=== PATIENT | male | born 1965 | race Caucasian/White ===

== ENCOUNTER 2021-10-17 08:15 | Emergency (ER) | payer BC, SELFPAY ==
--- NOTE | ~2021-10-17 | XR_ITS ---
EXAMINATION: XR chest 2V DATE: 10/17/2021 08:37 INDICATION: Cough. Smoker. TECHNIQUE: Frontal and lateral views of the chest were obtained. COMPARISON: None. FINDINGS: The chest demonstrates clear lungs without pneumonia, pleural effusion, or pneumothorax. Th e heart size is normal. IMPRESSION: 1. No acute cardiopulmonary disease. Reviewed, dictated and finalized at location A.
[2021-10-17 08:22] VITALS: BP 135/82; PULSE 65; RESP 16; TEMP 36.9; O2SAT 98
--- NOTE | 2021-10-17 08:27 | ED.URI ---
HPI - URI/Sore Throat General Chief Complaint: Upper Respiratory Infection Stated Complaint: Chest Congestion Time Seen by Provider: 10/17/21 08:27 Source: patient Mode of arrival: ambulatory Limitations: no limitations History of Present Illness HPI Narrative: 55 yo M presents with cough, chest congestion Since October 08. Pt states he tested positive for covid october 10. No recent fever or SOB. No CP. Is concerned he may have covid due to continued cough. Pt does smoke daily. Ambulatory with steady gait. Taking OTC mucinex. All systems reviewed and negative except as noted above. Related Data Home Medications Medication Instructions Recorded Confirmed aspirin 81 mg tablet,delayed 81 mg PO DAILY 10/17/21 10/17/21 release (Adult Low Dose Aspirin) atorvastatin 80 mg tablet 1 tablet PO DAILY 10/17/21 10/17/21 clopidogrel 75 mg tablet 1 tablet PO DAILY 10/17/21 10/17/21 evolocumab 140 mg/mL subcutaneous 1 syr subcut [id number] 10/17/21 10/17/21 syringe (Repatha Syringe) ezetimibe 10 mg tablet 1 tablet PO DAILY 10/17/21 10/17/21 lisinopril 2.5 mg tablet 1 tablet PO DAILY 10/17/21 10/17/21 Allergies Allergy/AdvReac Type Severity Reaction Status Date / Time No Known Allergies Allergy Verified 10/17/21 08:35 Review of Systems Review of Systems: CONSTITUTIONAL: Denies fever, chills, or sweats. EYES: Denies visual changes, redness, or discharge. ENT: Denies rhinorrhea, congestion, sore throat, or otalgia. CARDIOVASCULAR: Denies chest pain, palpitations, or edema. RESPIRATORY: Reports cough. Denies dyspnea. GASTROINTESTINAL: Denies abdominal pain, nausea, vomiting, or diarrhea. GENITOURINARY: Denies dysuria or hematuria. SKIN: Denies rash or itching. MUSCULOSKELETAL: Denies back pain, joint pain, or myalgia. NEUROLOGIC: Denies headache, numbness, or weakness. PSYCHIATRIC: Denies anxiety or depression. All other systems reviewed are negative, except as documented in HPI. PMFSH Comments At time of signature, agree with nursing past medical, surgical, social and family history. There is no relevant family history pertinent to the presenting complaint. Exam Narrative: GENERAL: This is a well-nourished, well-developed patient, in no apparent distress. HEAD: normocephalic, atraumatic. EYES: PERRL. Sclera clear/white. Vision is grossly intact. EARS: External ears normal, auditory canals clear and without drainage, TMs normal without perforation. Hearing grossly intact. NOSE: External nose normal with no obvious nasal discharge, nares without redness, no rhinorrhea. THROAT: Mucous membranes moist, posterior pharynx clear. NECK: Neck supple, non-tender without lymphadenopathy, masses or thyromegaly. CARDIOVASCULAR: Regular rate and rhythm without murmurs, gallops, or rubs. RESPIRATORY: Mildly decreased lung sounds throughout all lung marie. Breath sounds equal bilaterally. No wheezes, rales, or rhonchi. SKIN: warm, Dry, intact with no suspicious lesions or rash, good texture and turgor. NEURO: awake, alert, and oriented to person, place and time. There were no obvious focal neurologic abnormalities. EXTREMITIES: No joint tenderness, effusion, or edema noted. Course Course Level of Care: Express Care Visit Vital Signs Vital signs: Vital Signs Temperature 36.9 C 10/17/21 08:22 Pulse Rate 65 10/17/21 08:22 Respiratory Rate 16 10/17/21 08:22 Blood Pressure 135/82 10/17/21 08:22 Pulse Oximetry 98 10/17/21 08:22 Oxygen Delivery Room Air 10/17/21 08:22 Temperature 36.9 C 10/17/21 08:22 Pulse Rate 65 10/17/21 08:22 Respiratory Rate 16 10/17/21 08:22 Blood Pressure 135/82 10/17/21 08:22 Pulse Oximetry 98 10/17/21 08:22 Oxygen Delivery Room Air 10/17/21 08:22 Reviewed MDM - URI/Sore Throat MDM Narrative Medical decision making narrative: At time of signature, agree with nursing past medical, surgical, social and family history. There is no relevant family history pertinent to th
== END 2021-10-17 08:55 | disposition home or self-care (01) ==
PROVIDERS: Emergency Provider Nurse Practitioner Family; PCP Family Medicine
DX: J20.9 Acute bronchitis, unspecified (principal); I25.2 Old myocardial infarction
CPT/HCPCS: 71046; 99213; G0463

== ENCOUNTER 2023-07-21 12:00 | Emergency (ER) | payer BC, SELFPAY ==
[2023-07-21 12:06] VITALS: BP 146/78; PULSE 58; RESP 20; TEMP 37; O2SAT 96
--- NOTE | 2023-07-21 12:21 | ED.URI ---
HPI - URI/Sore Throat General Chief Complaint: Upper Respiratory Infection Stated Complaint: cold symptoms Time Seen by Provider: 07/21/23 12:17 Source: patient and RN notes reviewed Mode of arrival: ambulatory Limitations: no limitations History of Present Illness HPI Narrative: Patient presents today with a 10 day history of congestion, postnasal drip, headache, cough that is worse at night, occasional shortness of breath and wheezing. Symptoms have been worse over the last 4 days. Denies fever. He has tried Robitussin and Tylenol without relief. Denies asthma or COPD. Smokes 1 pack per day. Related Data Home Medications Medication Instructions Recorded Confirmed aspirin 81 mg tablet,delayed 81 mg PO DAILY 10/17/21 07/21/23 release (Adult Low Dose Aspirin) atorvastatin 80 mg tablet 1 tablet PO DAILY 10/17/21 07/21/23 clopidogrel 75 mg tablet 1 tablet PO DAILY 10/17/21 07/21/23 evolocumab 140 mg/mL subcutaneous 1 syr subcut [id number] 10/17/21 07/21/23 syringe (Repatha Syringe) lisinopril 2.5 mg tablet 1 tablet PO DAILY 10/17/21 07/21/23 Allergies Allergy/AdvReac Type Severity Reaction Status Date / Time No Known Allergies Allergy Verified 10/17/21 08:35 Review of Systems Review of Systems: CONSTITUTIONAL: Denies body aches, fever, chills, or sweats. EYES: Denies visual changes, redness, or discharge. ENT: Denies rhinorrhea, sore throat, or otalgia.+ congestion, postnasal drip CARDIOVASCULAR: Denies chest pain, palpitations, or edema. RESPIRATORY: + cough, shortness of breath, wheezing GASTROINTESTINAL: Denies abdominal pain, nausea, vomiting, or diarrhea. GENITOURINARY: Denies dysuria or hematuria. SKIN: Denies rash, itching, or wounds. MUSCULOSKELETAL: Denies back pain, joint pain, or myalgia. NEUROLOGIC: Denies numbness, tingling, or weakness.+ headache PSYCH: Denies depression or anxiety. [facility] Past Medical History Medical History (Updated 07/21/23 @ 12:36 by Keiko Figueroa, [employer], [place]) High cholesterol Social History Social History (Updated 07/21/23 @ 12:37 by Keiko Figueroa, [employer] M[employer], BC) Smoking packs per day: 1 Smoking cigarettes per day: 20.0 Smoking status: Current every day smoker Tobacco type: cigarettes Comments At time of signature, I have reviewed and agree with nursing past medical, surgical, social and family history unless otherwise noted. Please see nursing chart for further information. There is no relevant family history pertinent to the presenting complaint Exam Narrative: GENERAL: Well-appearing, well-nourished, and in no acute distress. HEAD: Normocephalic, atraumatic. EYES: EOMI. No redness or drainage. Conjunctivae normal. ENT: Mucous membranes pink and moist. Nares congested. No rhinorrhea. TMs normal bilaterally. Throat normal. Uvula midline. NECK: Normal AROM. Supple. No lymphadenopathy. CHEST: No respiratory distress. Clear to auscultation. HEART: Regular rate and rhythm. No murmur appreciated. EXTREMITIES: Normal range of motion. No edema. SKIN: Warm, dry, no rash. Capillary refill normal. Normal skin turgor. NEURO: No focal deficits. Alert and oriented x3. Gait steady. PSYCH: Normal affect. No signs of depression or anxiety. Course Course Level of Care: Express Care Visit Vital Signs Vital signs: Vital Signs Temperature 98.6 F 07/21/23 12:06 Pulse Rate 58 L 07/21/23 12:06 Respiratory Rate 20 07/21/23 12:06 Blood Pressure 146/78 H 07/21/23 12:06 Pulse Oximetry 96 07/21/23 12:06 Oxygen Delivery Room Air 07/21/23 12:06 Temperature 98.6 F 07/21/23 12:06 Pulse Rate 58 L 07/21/23 12:06 Respiratory Rate 20 07/21/23 12:06 Blood Pressure 146/78 H 07/21/23 12:06 Pulse Oximetry 96 07/21/23 12:06 Oxygen Delivery Room Air 07/21/23 12:06 Reviewed MDM - URI/Sore Throat MDM Narrative Medical decision making narrative: Patient will be treated for sinusitis and bronchitis with Augmentin and
== END 2023-07-21 12:25 | disposition home or self-care (01) ==
PROVIDERS: Emergency Provider Nurse Practitioner; PCP Family Medicine
DX: J32.9 Chronic sinusitis, unspecified (principal); J40 Bronchitis, not specified as acute or chronic; F17.210 Nicotine dependence, cigarettes, uncomplicated; E78.00 Pure hypercholesterolemia, unspecified; Z79.82 Long term (current) use of aspirin
CPT/HCPCS: 99213; G0463

== ENCOUNTER 2024-08-16 15:41 | Emergency (ER) | payer OTHER, SELFPAY ==
--- OUTSIDE RECORDS SUMMARY | 2024-08-16 15:43 | XMS_ITS | CONTINUITY OF CARE DOCUMENT ---
Author Name nathandeb, nathandeb Address Unknown Organization [facility] Address [address] [facility] [address] [place] [address] Phone [phone] Care Team Providers Care Last Code Striper Name Role Phone Brennen PICKETT, Boris Unavailable [phone] CHEIKH JEFFREY MD Unavailable [phone] CHEIKH JEFFREY MD Unavailable [phone] PROBLEMS Condition Status Date Provider Notes CHEST PAIN completed - Boris Hutton MD CAD INF WALL [place] VISION STENT TO RCA , PDA 2012 , nl stress nuclear 12/2016 active Boris Hutton MD FAMILY HISTORY OF HEART DISEASE-10/17 CAROTID NEG completed - Boris Hutton MD TOBACCO ABUSE active Boris Hutton MD HTN SYSTOLIC echo 09/2019 ef 60% active Sal Hutton MD Hypercholesterolemia, LDL 12 7 in 11/2017 completed - Boris Hutton MD Obesity active Boris Hutton MD Near Syncope active Boris Hutton MD Elevated blood glucose completed 4 - Boris Hutton MD Hypertriglyceridemia completed - Boris Hutton MD Hyperlipidemia active Boris Hutton MD FAMILY HISTORY OF premature HEART DISEASE active Boris Hutton MD Exposure to COVID-19 coronav irus , bronchitis 10/26 active Boris Hutton MD Numbness, left side of body active Desmond blake Sleep apnea, moderate, refused cpap active Desmond Lionosiel Leg pain, bilateral--LARISA mil d disease 10/2023 active Desmond Marsh ENCOUNTERS Date Type Provider Location Encounter Diag nosis - In-person encounter Office Visit Boris Hutton MD [facility] - In-person encounter Office Visit Boris Hutton MD [facility] Sleep apnea, moderate, refused cpapLeg pain, bilateral--LARISA mild disease 10/2023 - In-person encounter Office Visit Boris Hutton MD [facility] Numbness, left side of bodySleep apnea, moderate, refused cpapLeg pain, bilateral--LARISA mild disease 10/2023 - In-person encounter Office Visit Boris Hutton MD [facility] Exposure to COVID-19 coronavirus , bronchitis 10/26 - In-person encounter Office Visit Boris Hutton MD [facility] - In-person encounter Office Visit Boris Hutton MD [facility] CAD INF WALL [place] VISION STENT TO RCA , PD A 2012 , nl stress nuclear 12/2016FAMILY HISTORY OF HEART DISEASE-10/17 CAROTID NEGHTN SYSTOLIC echo 09/2019 ef 60%Hypercholesterolemia, LDL 127 in 11/2017Elevated blood glucoseHypertriglyceridemiaHyperlipidemiaFA [facility] HISTORY OF premature HEART DISEASE - In-person encounter Office Visit Boris Hutton MD [facility] Near Syncope - In-person encounter Office Visit Boris Hutton MD [facility] - In-person encounter Office Visit Boris Hutton MD [facility] Obesity - In-person encounter Office Visit Boris Hutton MD [facility] - In-person encounter Office Visit Boris Hutton MD [facility] - In-person encounter Office Visit Boris Hutton MD [facility] CHEST PAINCAD INF WALL [place] VISION STENT T O RCA , PDA 2012 , nl stress nuclear 12/2016HTN SYSTOLIC echo 09/2019 ef 60% - In-person encounter Office Visit Boris Hutton MD [facility] - In-person encounter Office Visit Boris Hutton MD [facility] - In-person encounter Office Visit Boris Hutton MD [facility] - In-person encounter Office Visit Boris Hutton MD [facility] HTN SYSTOLIC echo 09/2019 ef 60% - In-person encounter Office Visit Boris Hutton MD [facility] CAD INF WALL [place] VISION STENT TO RCA , PD A 2012 , nl stress nuclear 12/2016FAMILY HISTORY OF HEART DISEASE-10/17 CAROTID NEGTOBACCO ABUSEHTN SYSTOLIC echo 09/2019 ef 60%Hypercholesterolemia, LDL 127 in 11/2017 VITAL SIGNS Date Observation Value Provider Body Mass Index (Ratio) 35.42 kg/m2 Sal Hutton MD blood pressure, diastolic 85 mm[Hg] Maria Guadalupe Piper blood pressure, systolic 136 mm[Hg] Ana Piper oxygen saturation, oximetry 97 % Susan Piper pulse rate 56 /min Susan Piper respiratory rate E&M 12 /min Susan Piper weight E&M 254 [lb_av] Susan Piper height E&M 71 [in_i] Susan Piper blood pressure, cuff size regular Maria Guadalupe Piper blood pressure, diastolic 89 mm[Hg] Va sarah Huerta blood pressure, systolic 143 mm[Hg] Danielle jennifer Huerta pulse rate 60 /min Gabriella Bradley respiratory rate E&M 16 /min Gabriella Bradley oxygen saturation, oximetry 94 % Gabriella Bradley blood pressure, cuff size regular Va lerstephany Bradley height E&M 71 [in_i] Gabriella Bradley Body Mass Index (Ratio) 36.12 kg/m2 Sal Hutton MD blood pressure, diastolic -1 mm[Hg] Li nkLogic blood pressure, systolic 145 mm[Hg] Krys kLogic blood pressure, diastolic 85 mm[Hg] Ja rret blood pressure, systolic 145 mm[Hg] Jar ret pulse rate 59 /min Jean y blood pressure, cuff size regular Ja rret oxygen saturation, oximetry 96 % Jean respiratory rate E&M 14 /min Jean weight E&M 259 [lb_av] Jean y height E&M 71 [in_i] Jean y Body Mass Index (Ratio) 34.86 kg/m2 Sal Hutton MD blood pressure, cuff size large Pr alex [place] blood pressure, diastolic 84 mm[Hg] Mi alex [place] blood pressure, systolic 146 mm[Hg] [facility] helle [place] oxygen saturation, oximetry 96 % Lorna Mireles respiratory rate E&M 16 /min Delmis tai Mireles pulse rate 63 /min Lorna schwartz weight E&M 250 [lb_av] Lorna Buckner d height E&M 71 [in_i] Lorna Buckner d Body Mass Index (Ratio) 35.28 kg/m2 Sal Hutton MD blood pressure, diastolic 92 mm[Hg] Mirna [place] blood pressure, systolic 144 mm[Hg] Cat herine [place] oxygen saturation, oximetry 98 % Peace [place] respiratory rate E&M 14 /min Catheri ne Demond pulse rate 68 /min Peace [place] weight E&M 253 [lb_av] Peace Demond blood pressure, cuff size large Ca therine [place] height E&M 71 [in_i] Peace [place] Body Mass Index (Ratio) 34.59 kg/m2 Sal Hutton MD blood pressure, diastolic 85 mm[Hg] Li nkLogic blood pressure, systolic 156 mm[Hg] Krys kLogic blood pressure, diastolic 85 mm[Hg] Ch astity Usman blood pressure, systolic 156 mm[Hg] Flaca stity Usman oxygen saturation, oximetry 96 % Chastity Usman pulse rate 64 /min Chastity Usman respiratory rate E&M 16 /min Chastit y Usman weight E&M 248 [lb_av] Chastity Usman height E&M 71 [in_i] Chastity Usman Body Mass Index (Ratio) 35.70 kg/m2 Sal Hutton MD blood pressure, cuff size large Ke rri Gruenenfelder blood pressure, diastolic 94 mm[Hg] Ke rri Gruenenfelder blood pressure, systolic 140 mm[Hg] Kwaku Mckinley oxygen saturation, oximetry 98 % Alice Arlen respiratory rate E&M 16 /min Alice hendrickson pulse rate 67 /min Alice Ana ldalfredo weight E&M 256 [lb_av] Alicejessica Perez lder height E&M 71 [in_i] Alice Perez lder Body Mass Index (Ratio) 35.51 kg/m2 Sal Hutton MD blood pressure, diastolic 84 mm[Hg] Luther Lopez [place] blood pressure, systolic 135 mm[Hg] Lena Junior oxygen saturation, oximetry 97 % Nikunj Junior respiratory rate E&M 18 /min Kelby alvares Junior pulse rate 60 /min Nikunj Tim nson weight E&M 254.6 [lb_av] Nikunj Linn enson height E&M 71 [in_i] Nikunj Tim nson temperature site temporal Linda Tank sley temperature E&M 97.7 [degF] Linda Tanks rosendo Body Mass Index (Ratio) 35.14 kg/m2 Sal Hutton MD blood pressure, diastolic 80 mm[Hg] Da august Jameson blood pressure, systolic 132 mm[Hg] Dac ia Jameson oxygen saturation, oximetry 94 % Tierra Jameson respiratory rate E&M 18 /min Tierra V oss pulse rate 67 /min Tierra Jameson weight E&M 252 [lb_av] Tierra Jameson height E&M 71 [in_i] Tierra Jameson Body Mass Index (Ratio) 35.42 kg/m2 Sal Hutton MD blood pressure, cuff size large Ke rri Arlen blood pressure, diastolic 80 mm[Hg] Ke rri Arlen blood pressure, systolic 142 mm[Hg] Kwaku Mckinley oxygen saturation, oximetry 98 % Alice Mckinley respiratory rate E&M 20 /min Alice hendrickson pulse rate 62 /min Alice Betoe lder weight E&M 254 [lb_av] Alice Betoe lder height E&M 71 [in_i] Alice Betoe er Body Mass Index (Ratio) 34.45 kg/m2 Andr ia Curly blood pressure, cuff size large Ke rri Betoelder blood pressure, diastolic 80 mm[Hg] Ke rri Betoelder blood pressure, systolic 130 mm[Hg] Kwaku ri [facility] oxygen saturation, oximetry 96 % Alice Pérezmaximilianoer respiratory rate E&M 16 /min Alice Walls [facility] pulse rate 66 /min Alice Péreze er weight E&M 247 [lb_av] Alice Péreze er height E&M 71 [in_i] Alice Péreze er blood pressure, diastolic 80 mm[Hg] Luther Junior blood pressure, systolic 136 mm[Hg] Lena Junior pulse rate 69 /min Nikunj knox oxygen saturation, oximetry 97 % Nikunj Junior respiratory rate E&M 16 /min Kelby Junior Body Mass Index (Ratio) 34.70 kg/m2 Christina Junior weight E&M 248.8 [lb_av] Nikunj saunders blood pressure, diastolic 85 mm[Hg] Luther Junior blood pressure, systolic 134 mm[Hg] Lena Junior pulse rate 60 /min Nikunj knox oxygen saturation, oximetry 97 % Nikunj Junior respiratory rate E&M 16 /min Kelby Junior Body Mass Index (Ratio) 34.92 kg/m2 Christina Junior weight E&M 250.4 [lb_av] Nikunj saunders blood pressure, diastolic 85 mm[Hg] Luther Junior blood pressure, systolic 137 mm[Hg] Lena Junior Body Mass Index (Ratio) 34.50 kg/m2 Christina Junior pulse rate 54 /min Nikunj knox oxygen saturation, oximetry 98 % Nikunj Junior respiratory rate E&M 18 /min Kelby Junior weight E&M 247.4 [lb_av] Nikunj sanuders Body Mass Index (Ratio) 34.03 kg/m2 Concepcion Mayorga blood pressure, diastolic 81 mm[Hg] Yuriy Mayorga blood pressure, systolic 128 mm[Hg] Cruz elif Mayorga pulse rate 68 /min Lina Mayorga oxygen saturation, oximetry 97 % Lina Mayorga respiratory rate E&M 17 /min Lina Mayorga weight E&M 244 [lb_av] Lina Mayorga blood pressure, diastolic 91 mm[Hg] Jeffrey Cerda RN blood pressure, systolic 151 mm[Hg] Alex Cerda RN pulse rate 66 /min Alex Cerda RN oxygen saturation, oximetry 97 % Alex Cerda RN respiratory rate E&M 18 /min Alex ahmadi RN Body Mass Index (Ratio) 35.83 kg/m2 Alex Cerda RN weight E&M 256 [lb_av] Alex Cerda RN Body Mass Index (Ratio) 28.00 kg/m2 Calos Barrera blood pressure, diastolic, left arm 71 mm [Hg] Debora Barrera blood pressure, systolic, left arm 127 mm [Hg] Debora Barrera blood pressure, diastolic, right arm 81 m m[Hg] Debora Barrera blood pressure, systolic, right arm 125 m m[Hg] [facility] blood pressure, diastolic 71 mm[Hg] Walter jerrell [place] blood pressure, systolic 127 mm[Hg] Robin eagle [place] pulse rate 58 /min [facility] oxygen saturation, oximetry 97 % [facility] respiratory rate E&M 16 /min [facility] weight E&M 200 [lb_av] [facility] height E&M 71 [in_i] [facility] ALLERGIES No Known Drug Allergies RESULTS Date Observation Value Provider Reference Range Interpretation Location hemoglobin A1C, blood, as % of total hemoglobin 5.6 % [facility] 4.8-5.6 lipoprotein, beta, serum, point, quantitative, calculated 145 mg/dL [facility] 0-99 High HDL cholesterol, serum 36 mg/dL [facility] >39 Low triglyceride, serum, random 131 mg/dL [facility] 0-149 cholesterol, serum 205 mg/dL [facility] 100-199 High alanine aminotransferase (SGPT), serum 34 1/L [facility] 0-44 aspartate aminotransferase (SGOT), serum 25 1/L [facility] 0-40 alkaline phosphatase, serum 76 1/L [facility] 39-117 bilirubin, serum, total 0.9 mg/dL [facility] 0.0-1.2 albumin/globulin ratio, serum 1.9 [facility] 1.2-2.2 globulin, serum 2.3 [facility] 1.5-4.5 albumin, serum 4.4 g/dL [facility] 3.8-4.9 protein, total, serum 6.7 g/dL [facility] 6.0-8.5 calcium, serum 9.6 mg/dL [facility] 8.7-10.2 carbon dioxide, venous blood 21 mmol/L [facility] 20-29 chloride, serum 104 mmol/L [facility] 96-106 potassium, serum 4.6 mmol/L [facility] 3.5-5.2 sodium, serum 139 mmol/L [facility] 043-374 8447/01/ 14 urea nitrogen/creatinine ratio, serum 24 [facility] 9-20 High eGFR if 91 mL/min/{1. 73_m2} [facility] >59 eGFR if not 79 mL/min/{1. 73_m2} [facility] >59 creatinine, serum 1.05 mg/dL [facility] 0.76-1.27 urea nitrogen, blood 25 mg/dL [facility] 6-24 High blood glucose, random 97 mg/dL [facility] 65-99 free thyroxine index 1.8 [facility] 1.2-4.9 triiodothyronine resin uptake 25 % [facility] 24-39 thyroxine, serum, total 7.3 ug/dL [facility] 4.5-12.0 thyroid stimulating hormone, serum 1.810 u[IU]/mL [facility] 0.450-4.500 hemoglobin A1C, blood, as % of total hemoglobin 5.6 % [facility] 4.8-5.6 lipoprotein, beta, serum, point, quantitative, calculated See report mg/dL [facility] 0-99 very low density lipoproteins See report mg/dL [facility] 5-40 HDL cholesterol, serum 33 mg/dL [facility] >39 Low triglyceride, serum, random 615 mg/dL [facility] 0-149 Critical high cholesterol, serum 223 mg/dL [facility] 100-199 High platelet count 214 X10E3/UL [facility] [phone]/06/ 18 red blood cell distribution width 12.9 % [facility] 11.6-15.4 mean corpuscular hemoglobin concentration, RBC 34.4 G/DL [facility] 31.5-35.7 mean corpuscular hemoglobin, RBC 31.7 pg [facility] 26.6-33.0 mean corpuscular volume, RBC 92 fL [facility] 79-97 hematocrit, blood 46.2 % [facility] 37.5-51.0 hemoglobin, blood 15.9 g/dL [facility] 13.0-17.7 erythrocyte (RBC) count 5.02 X10E6/UL [facility] 4.14-5.80 leukocyte count, blood 6.7 X10E3/UL [facility] 3.4-10.8 alanine aminotransferase (SGPT), serum 24 1/L [facility] 0-44 aspartate aminotransferase (SGOT), serum 19 1/L [facility] 0-40 alkaline phosphatase, serum 78 1/L [facility] 39-117 bilirubin, serum, total 0.5 mg/dL [facility] 0.0-1.2 albumin/globulin ratio, serum 2.2 [facility] 1.2-2.2 globulin, serum 2.1 [facility] 1.5-4.5 albumin, serum 4.6 g/dL [facility] 3.8-4.9 protein, total, serum 6.7 g/dL [facility] 6.0-8.5 calcium, serum 9.7 mg/dL [facility] 8.7-10.2 carbon dioxide, venous blood 25 mmol/L [facility] 20-29 chloride, serum 106 mmol/L [facility] 96-106 potassium, serum 5.3 mmol/L [facility] 3.5-5.2 High sodium, serum 143 mmol/L [facility] 337-309 9986/06/ 18 urea nitrogen/creatinine ratio, serum 21 [facility] 9-20 High eGFR if 91 mL/min/{1. 73_m2} [facility] >59 eGFR if not 79 mL/min/{1. 73_m2} [facility] >59 creatinine, serum 1.06 mg/dL [facility] 0.76-1.27 urea nitrogen, blood 22 mg/dL [facility] 6-24 blood glucose, random 98 mg/dL [facility] 65-99 hemoglobin A1C, blood, as % of total hemoglobin 5.7 % [facility] 4.8-5.6 High free thyroxine index 2.4 [facility] 1.2-4.9 triiodothyronine resin uptake 30 % [facility] 24-39 thyroxine, serum, total 8.1 ug/dL [facility] 4.5-12.0 thyroid stimulating hormone, serum 2.250 u[IU]/mL [facility] 0.450-4.500 lipoprotein, beta, serum, point, quantitative, calculated See report mg/dL [facility] 0-99 very low density lipoproteins See report mg/dL [facility] 5-40 HDL cholesterol, serum 32 mg/dL [facility] >39 Low triglyceride, serum, random 655 mg/dL [facility] 0-149 Critical high cholesterol, serum 237 mg/dL [facility] 100-199 High basophil count, absolute 0.1 x10E3/uL [facility] 0.0-0.2 Eosinophil Absolute Count 0.2 X10E3/UL [facility] 0.0-0.4 monocyte count, blood, automated 0.6 X10E3/UL [facility] 0.1-0.9 lymphocyte count, blood, automated 2.4 X10E3/UL [facility] 0.7-3.1 Absolute Neutrophils 4.3 X10E3/UL [facility] 1.4-7.0 basophils as percent of blood leukocytes 1 % [facility] Not Estab. eosinophils as percent of blood leukocytes 3 % [facility] Not Estab. monocytes as percent of blood leukocytes 8 % [facility] Not Estab. lymphocytes as percent of blood leukocytes 32 % [facility] Not Estab. neutrophils as percent of blood leukocytes 56 % [facility] Not Estab. platelet count 201 X10E3/UL [facility] [phone]/02/ 06 red blood cell distribution width 13.4 % [facility] 12.3-15.4 mean corpuscular hemoglobin concentration, RBC 33.9 G/DL [facility] 31.5-35.7 mean corpuscular hemoglobin, RBC 30.3 pg [facility] 26.6-33.0 mean corpuscular volume, RBC 89 fL [facility] 79-97 hematocrit, blood 44.8 % [facility] 37.5-51.0 hemoglobin, blood 15.2 g/dL [facility] 13.0-17.7 erythrocyte (RBC) count 5.02 X10E6/UL [facility] 4.14-5.80 leukocyte count, blood 7.5 X10E3/UL [facility] 3.4-10.8 alanine aminotransferase (SGPT), serum 29 1/L [facility] 0-44 aspartate aminotransferase (SGOT), serum 17 1/L [facility] 0-40 alkaline phosphatase, serum 72 1/L [facility] 39-117 bilirubin, serum, total 0.3 mg/dL [facility] 0.0-1.2 albumin/globulin ratio, serum 2.2 [facility] 1.2-2.2 globulin, serum 2.1 [facility] 1.5-4.5 albumin, serum 4.6 g/dL [facility] 3.5-5.5 protein, total, serum 6.7 g/dL [facility] 6.0-8.5 calcium, serum 9.0 mg/dL [facility] 8.7-10.2 carbon dioxide, venous blood 22 mmol/L [facility] 20-29 chloride, serum 108 mmol/L [facility] 96-106 High potassium, serum 4.4 mmol/L [facility] 3.5-5.2 sodium, serum 145 mmol/L [facility] 134-144 High urea nitrogen/creatinine ratio, serum 20 [facility] 9-20 eGFR if 85 mL/min/{1. 73_m2} [facility] >59 eGFR if not 73 mL/min/{1. 73_m2} [facility] >59 creatinine, serum 1.13 mg/dL [facility] 0.76-1.27 urea nitrogen, blood 23 mg/dL [facility] 6-24 blood glucose, random 113 mg/dL [facility] 65-99 High hemoglobin A1C, blood, as % of total hemoglobin 5.7 % [facility] 4.8-5.6 High free thyroxine index 2.0 [facility] 1.2-4.9 triiodothyronine resin uptake 25 % [facility] 24-39 thyroxine, serum, total 7.8 ug/dL [facility] 4.5-12.0 lipoprotein, beta, serum, point, quantitative, calculated 127 mg/dL [facility] 0-99 High very low density lipoproteins 53 mg/dL [facility] 5-40 High HDL cholesterol, serum 36 mg/dL [facility] >39 Low triglyceride, serum, random 267 mg/dL [facility] 0-149 High cholesterol, serum 216 mg/dL [facility] 100-199 High platelet count 195 X10E3/UL [facility] 667-136 9835/08/ 11 red blood cell distribution width 13.8 % [facility] 12.3-15.4 mean corpuscular hemoglobin concentration, RBC 33.7 G/DL [facility] 31.5-35.7 mean corpuscular hemoglobin, RBC 30.3 pg [facility] 26.6-33.0 mean corpuscular volume, RBC 90 fL [facility] 79-97 hematocrit, blood 46.6 % [facility] 37.5-51.0 hemoglobin, blood 15.7 g/dL [facility] 13.0-17.7 erythrocyte (RBC) count 5.18 X10E6/UL [facility] 4.14-5.80 leukocyte count, blood 7.6 X10E3/UL [facility] 3.4-10.8 alanine aminotransferase (SGPT), serum 28 1/L [facility] 0-44 aspartate aminotransferase (SGOT), serum 22 1/L [facility] 0-40 alkaline phosphatase, serum 69 1/L [facility] 39-117 bilirubin, serum, total 0.4 mg/dL [facility] 0.0-1.2 albumin/globulin ratio, serum 2.3 [facility] 1.2-2.2 High globulin, serum 2.0 [facility] 1.5-4.5 albumin, serum 4.6 g/dL [facility] 3.5-5.5 protein, total, serum 6.6 g/dL [facility] 6.0-8.5 calcium, serum 9.3 mg/dL [facility] 8.7-10.2 carbon dioxide, venous blood 20 mmol/L [facility] 20-29 chloride, serum 106 mmol/L [facility] 96-106 potassium, serum 4.1 mmol/L [facility] 3.5-5.2 sodium, serum 142 mmol/L [facility] 836-151 2659/08/ 11 urea nitrogen/creatinine ratio, serum 22 [facility] 9-20 High eGFR if 92 mL/min/{1. 73_m2} [facility] >59 eGFR if not 79 mL/min/{1. 73_m2} [facility] >59 creatinine, serum 1.06 mg/dL [facility] 0.76-1.27 urea nitrogen, blood 23 mg/dL [facility] 6-24 blood glucose, random 130 mg/dL [facility] 65-99 High HISTORY OF MEDICATION USE Medication Status Instructions Dates Provider Indications Com ments lisinopril 10 mg tablet active Take 1 tablet by mouth once a day Alice Mckinley clopidogrel 75 mg tablet active Take 1 tablet by mouth once a day Alice Mckinley Wegovy 0.5 mg/0.5 mL pen injector completed Inject 0.5 ml subcutaneously once a week Inject 0.5mg subcutaneously once a week for 4 weeks - 06/28 Desmond Marsh Wegovy 0.5 mg/0.5 mL pen injector completed Inject 0.25mg subcutaneously once a week for 4 weeks - Tehylor Flynney Wegovy 0.25 mg/0.5 mL pen injector completed Inject 0.25mg subcutaneously once a week for 4 weeks 11/09 - Desmond Marsh lisinopril 10 mg tablet completed TAKE 1 TABLET BY MOUTH ONCE DAILY 09/28 - Alice Mckinley Repatha SureClick 140 mg/mL pen injector active Inject 1 pen injector subcutaneously every two weeks Desmond Marsh CAD INF WALL [place] VISION STENT TO RCA , PDA 2012 , nl stress nuclear 12/2016 atorvastatin 80 mg tablet active TAKE 1 TABLET BY MOUTH AT NIGHT 04/26 Jean Easterday Repatha Syringe 140 mg/mL syringe completed Inject 1 ml subcutaneously every two weeks 11/26 - 05/14 Sheila Sigala atorvastatin 80 mg tablet completed TAKE 1 TABLET BY MOUTH AT NIGHT 04/26 - 04/26 Jean Easterday Repatha Syringe 140 mg/mL syringe completed INJECT 1 ML SUBCUTANEOUSLY 1 TIME EVERY 2 WEEKS 01/04 - 11/26 Alice Mckinley clopidogrel 75 mg tablet completed TAKE 1 TABLET BY MOUTH ONCE DAILY 12/25 - Alice Mckinley ezetimibe 10 mg tablet completed TAKE 1 TABLET BY MOUTH ONCE DAILY 12/08 - 11/09 Gabriella Huerta lisinopril 2.5 mg tablet completed TAKE 1 TABLET BY MOUTH ONCE DAILY 12/08 - 09/28 Desmond Busby Syringe 140 mg/mL syringe completed Inject 1 ml subcutaneously once every two weeks 12/21 - 01/04 Babita Orozco Zetia 10 mg tablet completed Take 1 tablet by mouth once a day 10/24 - 12/08 Alice Mckinley ezetimibe 10 mg tablet completed Take 1 tablet by mouth once a day 04/20 - 10/24 Stacie Quinonez RN Vascepa 1 gram capsule completed 2 capsule by mouth twice a day 04/10 - 10/24 Boris Cabralestilisa Continuing Month Box 1 mg tablet completed Take 1 mg by mouth twice a day 04/10 - 10/24 Boris Cabralestilisa Starting Month Box 0.5 mg (11)- 1 mg (42) tablets,dose pack completed Take 0.5mg daily on days 1-3, take 0.5mg twice daily on days 4-7, take 1mg twice daily on day 8 and to end of treatment 04/10 - 10/24 Boris HANNAH 1 GM ORAL CAPSULE completed 2 capsules by mouth twice daily [place] Coupon Code: KORTNEY# [id number], PCN# [id number], GRP# [id number], ID# [id number] 09/22 - 10/23 Alice CABRALESTIX CONTINUING MONTH EMIL 1 MG ORAL TABLET completed One pack. twice daily 10/28 - 10/23 Alice Kaurnfeldalfredo VASCEPA 1 GM ORAL CAPSULE completed take 2 capsules or 2 grams twice daily. 05/13 - 10/23 Nikunj Junior VASCEPA 1 GM ORAL CAPSULE completed 2 grams twice a day 05/13 - 10/23 Nikunj Junior Triglyceride level 667 CHANTIX CONTINUING MONTH EMIL 1 MG ORAL TABLET completed one tab daily 05/12 - 10/23 Alice Mckinley CHANTIX STARTING MONTH EMIL 0.5 MG X 11 & 1 MG X 42 ORAL TABLET completed one tab daily 05/12 - 10/23 Alice Mckinley MULTIVITAMINS ORAL CAPSULE completed ONE TAB. DAILY - 10/23 Alice Mckinley lisinopril 2.5 mg tablet completed Take 1 tablet by mouth once a day 09/19 - 12/08 Alice Mckinley atorvastatin 80 mg tablet completed Take 1 tablet by mouth every night 10/10 - 04/11 Alex Cerda RN clopidogrel 75 mg tablet completed Take 1 tablet by mouth once a day 06/05 - Alex Cerda RN aspirin 325 mg tablet active 1 tablet by mouth once a day Alex Cerda RN SOCIAL HISTORY Date Observation Value Provider drug use no Desmond makayla alcohol use, average drinks per day social Desmondliz Marsh alcohol use, type occa Desmond cartagena alcohol use yes Desmond makayla passive cigarette sm ryan exposure no Desmond makayla smoking/tobacco cess ation, patient education and counseling yes Desmond Marsh number of years as a smoker 20 a Desmondliz Marsh smoking history, tot al pack/day 1/2 ppd Desmond makayla cigarette use yes Desmondliz Marsh smoking status Current every day smoker R obi Marsh drug use no Desmond Marsh alcohol use, average drinks per day social Desmond Marsh alcohol use, type occa Desmond cartagena alcohol use yes Desmond Marsh passive cigarette sm ryan exposure no Desmond Marsh smoking/tobacco cess ation, patient education and counseling yes Desmond Marsh number of years as a smoker 20 a Desmond Marsh smoking history, tot al pack/day 1/2 ppd Desmond Marsh cigarette use yes Desmond Marsh smoking status Current every day smoker R meliz Marsh drug use no Desmond Marsh alcohol use, average drinks per day social Desmond Marsh alcohol use, type occa Desmond cartagena alcohol use yes Desmond Marsh passive cigarette sm ryan exposure no Desmond Marsh smoking/tobacco cess ation, patient education and counseling yes Desmond Marsh number of years as a smoker 20 a Desmond Marsh smoking history, tot al pack/day 1/2 ppd Desmond Marsh cigarette use yes Desmond Marsh smoking status Current every day smoker R obi Marsh social history E&M Marital Statu s: Smoking History: P atleno currently smokes every day. P atient has been counseled to quit. Boris Hutton MD social history reviewed E&M revi ewed - no changes required Boris Hutton MD exercise type work Lorna Esteban nd caffeine use, averag e drinks per day yes Lorna Mireles passive cigarette sm ryan exposure no Lorna Mireles smoking/tobacco cess ation, patient education and counseling yes Lorna Mireles number of years as a smoker 20 a Lorna Mireles smoking history, tot al pack/day 1/2 ppd Lorna Mireles cigarette use yes Lorna Esteban nd smoking status Current every day smoker M jonathan Mireles social history E&M Marital Statu s: Smoking History: P atient currently smokes every day. P atient has been counseled to quit. Desmond Raymaryanosiel exercise type work Peace Demond caffeine use, averag e drinks per day yes Peace Demond passive cigarette sm ryan exposure no Peace Demond smoking/tobacco cess ation, patient education and counseling yes Peace Demond number of years as a smoker 20 a [place] smoking history, tot al pack/day 1/2 ppd Peace [place] cigarette use yes [place] smoking status Current every day smoker C gigi Demond social history reviewed E&M revi ewed - no changes required Desmond Corymakayla social history E&M Marital Statu s: Smoking History: P atleno currently smokes every day. P atient has been counseled to quit. Boris Hutton MD social history reviewed E&M revi ewed - no changes required Boris Hutton MD exercise type work [employer] caffeine use, averag e drinks per day yes Chastity Usman passive cigarette sm ryan exposure no Chastity Usman smoking/tobacco cess ation, patient education and counseling yes Chastity Usman number of years as a smoker 20 a Chastity Usman smoking history, tot al pack/day 1/2 ppd Chastity Usman cigarette use yes Maria Luisa Mary smoking status Current every day smoker Qing Mary social history reviewed E&M revi ewed - no changes required Boris Hutton MD exercise type work Alice durand caffeine use, averag e drinks per day yes Alice Pérezladarius passive cigarette sm ryan exposure no Alice Pérezladarius smoking/tobacco cess ation, patient education and counseling yes Alice Pérezmaximilianoalfredo number of years as a smoker 20 a Alice Pérezmaximilianoalfredo smoking history, tot al pack/day 1/2 ppd Alice Mckinley cigarette use yes Alice durand smoking status Current every day smoker K singh Childersjoellenangeloladarius exercise type work Nikunj Linn bonita caffeine use, averag e drinks per day yes Nikunj Junior passive cigarette sm ryan exposure no Nikunj Junior smoking/tobacco cess ation, patient education and counseling yes Nikunj Junior number of years as a smoker 20 a Nikunj Junior smoking history, tot al pack/day 1/2 ppd Nikunj Junior cigarette use yes Nikunj saunders smoking status Current every day smoker Abdullahi douglasAntoine Junior social history E&M Marital Statu s: Smoking History: P atient currently smokes every day. P atient has been counseled to quit. Boirs Hutton MD smoking/tobacco cess ation, patient education and counseling yes Boris Hutton MD social history reviewed E&M revi ewed - no changes required Boris Hutton MD exercise type work Tierra Jameson alcohol counseling no Tierra Brent s In the past 3 months , have you been waking up wanting to use drugs? (CAGE substance use question #4) N [facility] In the past 3 months , have you felt guilty or bad about using drugs? (CAGE substance use question #3) N [facility] In the past 3 months , has anyone annoyed you by telling you to cut down or stop using drugs? (CAGE substance use question #2) N [facility] In the past 3 months , have you felt you should cut down or stop using drugs?(CAGE substance use question #1) N [facility] alcohol use, average drinks per day social [facility] alcohol use, type occa [facility] alcohol use yes [facility] caffeine use, averag e drinks per day yes [facility] drug use no [facility] passive cigarette sm ryan exposure no [facility] number of years as a smoker 20 a [facility] smoking history, tot al pack/day 1/2 ppd [facility] cigarette use yes [facility] smoking status Current every day smoker D [facility] number of grandchildren Boris Hutton MD T norbert Hutton MD social history reviewed E&M revi ewed - no changes required Boris Hutton MD social history E&M Marital Statu s: Smoking History: P atient currently smokes every day. Boris Hutton MD number of years as a smoker 20 a Alice Mckinley smoking history, tot al pack/day 1/2 ppd Alice Mckinley cigarette use yes Alice durand exercise type work Alice durand alcohol counseling no Alice ivy In the past 3 months , have you been waking up wanting to use drugs? (CAGE substance use question #4) N Alice Mckinley In the past 3 months , have you felt guilty or bad about using drugs? (CAGE substance use question #3) N Alice Arlen In the past 3 months , has anyone annoyed you by telling you to cut down or stop using drugs? (CAGE substance use question #2) N Alice Arlen In the past 3 months , have you felt you should cut down or stop using drugs?(CAGE substance use question #1) N Alice Arlen alcohol use, average drinks per day social Alice Arlen alcohol use, type occa Alice Clarence garcia alcohol use yes Alice Ana [facility] caffeine use, averag e drinks per day yes Alice Arlen drug use no Alice Ana lock passive cigarette sm ryan exposure no Alice Arlen smoking status Current every day smoker K singh Arlen social history reviewed E&M revi ewed - no changes required Boris Hutton MD exercise type work Alice durand alcohol counseling no Alice Childerssagar ivy In the past 3 months , have you been waking up wanting to use drugs? (CAGE substance use question #4) N Alicejessica Mckinley In the past 3 months , have you felt guilty or bad about using drugs? (CAGE substance use question #3) N Alice Arlen In the past 3 months , has anyone annoyed you by telling you to cut down or stop using drugs? (CAGE substance use question #2) N Alice Arlen In the past 3 months , have you felt you should cut down or stop using drugs?(CAGE substance use question #1) N Alice Mckinley alcohol use, average drinks per day social Alice Pérezmaximilianoalfredo alcohol use, type occa Alice de leonladarius alcohol use yes Alice Perez daisyer caffeine use, averag e drinks per day yes Alice Mckinley drug use no Alice Perez daisyer passive cigarette sm ryan exposure no Alice Mckinley smoking status Never smoker Alice ramsay social history reviewed E&M revi ewed - no changes required Boris Hutton MD exercise type work Nikunj saunders alcohol counseling no Nikunj Junior In the past 3 months , have you been waking up wanting to use drugs? (CAGE substance use question #4) N NikunjArlin Linnenson In the past 3 months , have you felt guilty or bad about using drugs? (CAGE substance use question #3) N NikunjArlin Linnenson In the past 3 months , has anyone annoyed you by telling you to cut down or stop using drugs? (CAGE substance use question #2) N Nikunj Junior In the past 3 months , have you felt you should cut down or stop using drugs?(CAGE substance use question #1) N NikunjArlin Linnenson alcohol use, average drinks per day social NikunjArlin Linnenson alcohol use, type occa NikunjArlin Linnenson alcohol use yes Nikunj Linne abilio caffeine use, averag e drinks per day yes NikunjArlin Junior drug use no Nikunj Glenroy denaeon passive cigarette sm ryan exposure no NikunjArlin Linnenson smoking status Never smoker Nikunjcolin Gama social history reviewed E&M revi ewed - no changes required Boris Hutton MD exercise type work Nikunj saunders alcohol counseling no Nikunj Junior In the past 3 months , have you been waking up wanting to use drugs? (CAGE substance use question #4) N Nikunj Junior In the past 3 months , have you felt guilty or bad about using drugs? (CAGE substance use question #3) N Nikunj Junior In the past 3 months , has anyone annoyed you by telling you to cut down or stop using drugs? (CAGE substance use question #2) N Nikunj Junior In the past 3 months , have you felt you should cut down or stop using drugs?(CAGE substance use question #1) N Nikunj Junior alcohol use, average drinks per day social Nikunj Junior alcohol use, type occa Nikunj Junior alcohol use yes Nikunj knox caffeine use, averag e drinks per day yes Nikunj Junior drug use no Nikunj knox passive cigarette sm ryan exposure no Nikunj Junior smoking status Never smoker Nikunj Moya lucero social history reviewed E&M revi ewed - no changes required Boris Hutton MD exercise type work Nikunj Linn nicky alcohol counseling no Nikunj Junior In the past 3 months , have you been waking up wanting to use drugs? (CAGE substance use question #4) Colin Nikunj Vernon In the past 3 months , have you felt guilty or bad about using drugs? (CAGE substance use question #3) Colin Nikunj Junior In the past 3 months , has anyone annoyed you by telling you to cut down or stop using drugs? (CAGE substance use question #2) Colin Nikunj Junior In the past 3 months , have you felt you should cut down or stop using drugs?(CAGE substance use question #1) Colin Nikunj Vernon alcohol use, average drinks per day social Nikunj Junior alcohol use, type occa Nikunj Junior caffeine use, averag e drinks per day yes Nikunj Junior drug use no Nikunj knox passive cigarette sm ryan exposure no Nikunj Junior smoking status Never smoker Nikunj Gama social history reviewed E&M ada recinos - no changes required Boris Hutton MD social history E&M Marital Status: Lenariabida d Alex Cerda RN caffeine use, averag e drinks per day yes Alex Cerda RN alcohol use, average drinks per day social Alex Cerda RN social history reviewed E&M reviewed Alex Cerda RN alcohol counseling no Debora lopez exercise type work Debora Newman n In the past 3 months , have you been waking up wanting to use drugs? (CAGE substance use question #4) Colin Barrera In the past 3 months , have you felt guilty or bad about using drugs? (CAGE substance use question #3) N Debora Barrera In the past 3 months , has anyone annoyed you by telling you to cut down or stop using drugs? (CAGE substance use question #2) Colin Barrera In the past 3 months , have you felt you should cut down or stop using drugs?(CAGE substance use question #1) Colin Barrera drug use no Debora Barrera passive cigarette sm ryan exposure no Debora Barrera alcohol use, type occa Debora prieto smoking status never smoker Debora bueno FUNCTIONAL STATUS Date Observation Value Provider HRA, CV Assess/Plan, Angina (inactive) Management Plan continue current therapy Desmond Marsh HRA, CV Assess/Plan, Angina (inactive) Management Plan continue current therapy Desmond Seymourzacésar HRA, CV Assess/Plan, Angina (inactive) Management Plan continue current therapy Desmond Ahmedzai HRA, CV Assess/Plan, Angina (inactive) Management Plan continue current therapy Boris Hutton MD HRA, CV Assess/Plan, Angina (inactive) Management Plan continue current therapy Desmond Marsh HRA, CV Assess/Plan, Angina (inactive) Management Plan continue current therapy Boris Hutton MD HRA, CV Assess/Plan, Angina (inactive) Management Plan continue current therapy Boris Hutton MD HRA, CV Assess/Plan, Angina (inactive) Management Plan continue current therapy Boris Hutton MD HRA, CV Assess/Plan, Angina (inactive) Management Plan continue current therapy Boris Hutton MD HRA, CV Assess/Plan, Angina (inactive) Management Plan continue current therapy Boris Hutton MD HRA, CV Assess/Plan, Angina (inactive) Management Plan continue current therapy Boris Hutton MD MENTAL STATUS Date Observation Value Provider assessment of judgme nt and insight E&M Alert and oriented to time, place and person. Mood and affect are normal. Alex Cerda RN assessment of judgme nt and insight E&M Alert and oriented to time, place and person. Mood and affect are normal. Boris Hutton MD FAMILY HISTORY Family Member Condition First Degree Blood Relative No Known Fam clif History INSURANCE PROVIDERS Payer name Policy type / Coverage type Patterson red constitution party ID [facility] Selvz [id number] ADVANCE DIRECTIVES Name Date DISCUSSED - NO DECISION MADE TREATMENT PLAN Date Name Performer [id number],C, Boris Hutton MD [id number],S, Boris Hutton MD [id number],S, Boris Hutton MD [id number],B, Boris Hutton MD [id number],W, Boris Hutton MD [id number],B, Boris Hutton MD [id number],B, Desmond Bourgeois i [id number],S, Desmondliz Bourgeois i [id number],S, Desmond Bourgeois i [id number],S, Desmond Corykin lindsey [id number],S, Desmond Bourgeois i [id number],S, Boris Hutton MD [id number],S, Boris Hutton MD [id number],S, Boris Hutton MD [id number],S, Boris Hutton MD [id number],S, Boris Hutton MD Cardiology: H is updated medication list for this problem includes: Repatha Sureclick 140 Mg/ml Pen Injector (Evolocumab) ..... Inject 1 pen injector subcutaneously every two weeks Atorvastatin 80 Mg Tablet (Atorvastatin) ..... Take 1 tablet by mouth at night Boris Hutton MD Cardiology:This visi t has been a part of the consistent, comprehensive, and ongoing management of the chronic medical condition(s) listed above for the patient. His updated medication list for this problem includes: Lisinopril 10 Mg Tablet (Lisinopril) ..... Take 1 tablet by mouth once a day Clopidogrel 75 Mg Tablet (Clopidogrel) ..... Take 1 tablet by mouth once a day Aspirin 325 Mg Tablet (Aspirin) ..... 1 tablet by mouth once a day Boris Hutton MD Telehealth: H is updated medication list for this problem includes: Lisinopril 10 Mg Tablet (Lisinopril) ..... Take 1 tablet by mouth once daily Clopidogrel 75 Mg Tablet (Clopidogrel) ..... Take 1 tablet by mouth once daily Aspirin 325 Mg Tablet (Aspirin) ..... 1 tablet by mouth once a day Desmond Marsh Telehealth: H is updated medication list for this problem includes: Lisinopril 10 Mg Tablet (Lisinopril) ..... Take 1 tablet by mouth once daily Aspirin 325 Mg Tablet (Aspirin) ..... 1 tablet by mouth once a day [facility] Cardiology: T he following medications were removed from the medication list: Ezetimibe 10 Mg Tablet (Ezetimibe) ..... Take 1 tablet by mouth once daily His updated medication list for this problem includes: Repatha Sureclick 140 Mg/ml Pen Injector (Evolocumab) ..... Inject 1 pen injector subcutaneously every two weeks Atorvastatin 80 Mg Tablet (Atorvastatin) ..... Take 1 tablet by mouth at night [facility] Cardiology [facility] Cardiology: H is updated medication list for this problem includes: Lisinopril 10 Mg Tablet (Lisinopril) ..... Take 1 tablet by mouth once daily Clopidogrel 75 Mg Tablet (Clopidogrel) ..... Take 1 tablet by mouth once daily Aspirin 325 Mg Tablet (Aspirin) ..... 1 tablet by mouth once a day [facility] Cardiology [facility] Cardiology [facility] Cardiology: H is updated medication list for this problem includes: Lisinopril 10 Mg Tablet (Lisinopril) ..... Take 1 tablet by mouth once daily Clopidogrel 75 Mg Tablet (Clopidogrel) ..... Take 1 tablet by mouth once daily Aspirin 325 Mg Tablet (Aspirin) ..... 1 tablet by mouth once a day [facility] Cardiology: H is updated medication list for this problem includes: Lisinopril 10 Mg Tablet (Lisinopril) ..... Take 1 tablet by mouth once daily Aspirin 325 Mg Tablet (Aspirin) ..... 1 tablet by mouth once a day BP today: 143/89 P rior BP: 145/-1 (09/29/2023) Labs Reviewed: C reat: 1.05 (04/20/2020) C hol: 205 (04/20/2020) HDL: 36 (04/20/2020) LDL: 145 (04/20/2020) T (04/20/2020) [facility]: His updated medication list for this problem includes: Lisinopril 10 Mg Tablet (Lisinopril) ..... Take 1 tablet by mouth once daily Aspirin 325 Mg Tablet (Aspirin) ..... 1 tablet by mouth once a day Orders: E KG (CPT-76550) C OMPREHENSIVE METABOLIC PANEL, W/EGFR (98589) L IPID PANEL (7600) H EMOGLOBIN A1c (496) C BC (INCLUDES DIFF/PLT) (6399) T SH, free T4, total T3 (7444) [facility] Cardiology: His updated medication list for this problem includes: Lisinopril 10 Mg Tablet (Lisinopril) ..... Take 1 tablet by mouth once daily Clopidogrel 75 Mg Tablet (Clopidogrel) ..... Take 1 tablet by mouth once daily Aspirin 325 Mg Tablet (Aspirin) ..... 1 tablet by mouth once a day Orders: C arotid Duplex Bilateral (CPT-15355) C OMPREHENSIVE METABOLIC PANEL, W/EGFR (88901) L IPID PANEL (7600) H EMOGLOBIN A1c (496) C BC (INCLUDES DIFF/PLT) (6399) T SH, free T4, total T3 (7444) [facility] Cardiology: O rders: C arotid Duplex Bilateral (CPT-57280) M onitor - Telemetry (Mobile Cardiac) (CPT-36316) C OMPREHENSIVE METABOLIC PANEL, W/EGFR (32860) L IPID PANEL (7600) H EMOGLOBIN A1c (496) C BC (INCLUDES DIFF/PLT) (6399) T SH, free T4, total T3 (7444) [facility] Cardiology: O rders: C arotid Duplex Bilateral (CPT-89962) C OMPREHENSIVE METABOLIC PANEL, W/EGFR (80441) L IPID PANEL (7600) H EMOGLOBIN A1c (496) C BC (INCLUDES DIFF/PLT) (6399) T SH, free T4, total T3 (7444) Desmond Ahmedzai Cardiology: O rders: A rterial Duplex Bi-Lower EX (CPT-16673) Desmond medzai Cardiology Desmond medzai Cardiology Desmond medzai Cardiology: O rders: C OMPREHENSIVE METABOLIC PANEL, W/EGFR (87631) L IPID PANEL (7600) H EMOGLOBIN A1c (496) C BC (INCLUDES DIFF/PLT) (6399) T SH, free T4, total T3 (7444) [facility]:Patient w as advised to stop smoking. O rders: C OMPREHENSIVE METABOLIC PANEL, W/EGFR (75783) L IPID PANEL (7600) H EMOGLOBIN A1c (496) C BC (INCLUDES DIFF/PLT) (6399) T SH, free T4, total T3 (7444) Desmond Ahmedzai Cardiology Boris Hutton MD Cardiology Boris uHtton MD Cardiology Boris Hutton MD Cardiology Boris Hutton MD Cardiology oBris Hutton MD Cardiology Boris Hutton MD Cardiology Desmond Ahmedzai Cardiology Desmond Ahmedzai Cardiology Desmond Ahmedzai Cardiology Desmond Ahmedzai Cardiology Desmond Ahmedzai Cardiology Boris Hutton MD Cardiology Boris Hutton MD Cardiology Boris Hutton MD Cardiology Boris Hutton MD Cardiology Boris Hutton MD Cardiology Follow up Boris rogers MD Cardiology Follow up :Will check carotids. Boris Hutton MD Cardiology Follow up :Hx of AK in 2012. Interested in the Select trial. Boris Hutton MD Cardiology Follow up Boris rogers MD Cardiology Follow up :Was not able to get Vascepa. Will send another Rx. Labs in September 2019 showed trigs of 615. On Lipitor 80mg daily. Pt has hx of CAD and hx of AK. Already on maximum dose of statin. Needs to be on Vascepa for CV protection. Boris Hutton MD Cardiology Boris Hutton MD Cardiology Boris Hutton MD Cardiology Boris Hutton MD Cardiology Boris Hutton MD Cardiology follow up Boris rogers MD Cardiology follow up Boris rogers MD Cardiology follow up : c ounselled to quit Boris Hutton MD Cardiology follow up Boris rogers MD Cardiology follow up Boris rogers MD Cardiology Follow up Toniya Delroy rogers MD Cardiology Follow up Toniya Delroy rogers MD Cardiology Follow up Tonigurvinder rogers MD Cardiology Follow up Tongrant rogers MD Cardiology Follow up Toniya Delroy rogers MD Cardiology Follow up Tonigurvinder rogers MD Cardiology Follow up Boris rogers MD Cardiology Follow up Boris rogers MD Cardiology Boris Hutton MD Cardiology Boris Hutton MD Cardiology Boris Hutton MD Cardiology Boris Hutton MD Cardiology Boris Hutton MD Cardiology Boris Hutton MD Cardiology Boris Hutton MD Cardiology Boris Hutton MD Cardiology Boris Hutton MD Cardiology Boris Hutton MD fu Boris Hutton MD fu Boris Hutton MD fu Boris Hutton MD fu:episode of cp , schedule stre ss test Boris Hutton MD follow up: H is updated medication list for this problem includes: Atorvastatin Calcium 40 Mg Tabs (Atorvastatin calcium) ..... Po daily Boris Hutton MD follow up: H is updated medication list for this problem includes: Aspirin 325 Mg Tabs (Aspirin) ..... One tab. daily on occassion Plavix 75 Mg Tabs (Clopidogrel bisulfate) ..... One tab. daily Lisinopril 5 Mg Tabs (Lisinopril) ..... 0.5 tab daily Atorvastatin Calcium 40 Mg Tabs (Atorvastatin calcium) ..... Po daily Boris Hutton MD follow up: H is updated medication list for this problem includes: Aspirin 325 Mg Tabs (Aspirin) ..... One tab. daily on occassion Lisinopril 5 Mg Tabs (Lisinopril) ..... 0.5 tab daily O rders: E KG (CPT-00197) BP today: 128/81 P rior BP: 151/91 (05/11/2013) Boris Hutton MD routine : H is updated medication list for this problem includes: Atorvastatin Calcium 80 Mg Tabs (Atorvastatin calcium) ..... One tab daily BP today: 151/91 Prior BP: 127/71 (11/24/2012) Boris Hutton MD [facility] follow up: H is updated medication list for this problem includes: Atorvastatin Calcium 80 Mg Tabs (Atorvastatin calcium) ..... One tab daily Boris Hutton MD [facility] follow up: H is updated medication list for this problem includes: Aspirin 325 Mg Tabs (Aspirin) ..... One tab. daily Lisinopril 2.5 Mg Tabs (Lisinopril) ..... One tab. daily Boris Hutton MD [facility] follow up Boris Hutton MD [facility] follow up: H is updated medication list for this problem includes: Aspirin 325 Mg Tabs (Aspirin) ..... One tab. daily Plavix 75 Mg Tabs (Clopidogrel bisulfate) ..... One tab. daily Lisinopril 2.5 Mg Tabs (Lisinopril) ..... One tab. daily Atorvastatin Calcium 80 Mg Tabs (Atorvastatin calcium) ..... One tab daily BP today: 127/71 Prior BP: / () C ardiac Cath: Acute myocardial infarction. 99% of the PDA and 90% of the distal RCA. Mild to moderate diffuse CAD. Normal EF of 60%. - [facility] (09/28/2012) C ardiac Cath Comments: Successful stenting of the RCA with a 3.0 mm x 12 mm stent and of the PDA with a 2.5 mm x 12 mm stent. - [facility] (09/28/2012) C arotid Doppler/Duplex: Normal carotid duplex examination. Vertebral flow is antegrade bilaterally. - [facility] (10/06/2012) Boris Hutton MD [facility] follow up: H is updated medication list for this problem includes: Aspirin 325 Mg Tabs (Aspirin) ..... One tab. daily Plavix 75 Mg Tabs (Clopidogrel bisulfate) ..... One tab. daily Lisinopril 2.5 Mg Tabs (Lisinopril) ..... One tab. daily Orders: E KG (CPT-41779) Boris Hutton MD Date Name Complete Echo Arterial Duplex Bi-L bowen EX Sleep Study Home PROBNP, N TERMINAL TSH, free T4, total T3 CBC (INCLUDES DIFF/P LT) HEMOGLOBIN A1c LIPID PANEL COMPREHENSIVE METABO LIC PANEL, W/EGFR Monitor - Telemetry (Mobile Cardiac) Carotid Duplex Bilat eral HEMOGLOBIN A1c TSH, free T4, total T3 LIPID PANEL CBC (INCLUDES DIFF/P LT) COMPREHENSIVE METABO LIC PANEL, W/EGFR COMPREHENSIVE METABO LIC PANEL, W/EGFR HEMOGLOBIN A1c LIPID PANEL HEMOGLOBIN A1c LIPID PANEL COMPREHENSIVE METABO LIC PANEL, W/EGFR Carotid Duplex Bilat eral Complete Echo CBC (H/H, RBC, INDIC ES, WBC, PLT) HEMOGLOBIN A1c TSH, free T4, total T3 LIPID PANEL COMPREHENSIVE METABO LIC PANEL, W/EGFR CBC (INCLUDES DIFF/P LT) HEMOGLOBIN A1c THYROID PANEL WITH T SH, 3RD GENERATION LIPID PANEL COMPREHENSIVE METABO LIC PANEL, W/EGFR HEMOGLOBIN A1c CBC (H/H, RBC, INDIC ES, WBC, PLT) THYROID PANEL WITH T SH, 3RD GENERATION LIPID PANEL COMPREHENSIVE METABO LIC PANEL, W/EGFR HISTORY OF PROCEDURES Procedure Date Procedure Name Provider Procedure Notes S tatus Tobacco user + tobac co cessation intervention Boris Hutton MD completed Complex e/m visit add on Boris Hutton MD completed Complex e/m visit add on Boris Hutton MD completed Complex e/m visit add on Boris Hutton MD completed EKG Boris Hutton MD completed EKG Boris Hutton MD completed EKG Boris Hutton MD completed EKG Boris Hutton MD completed Stress EKG Loki Damon MD completed Cardiolite, 2 units Boris Hutton MD completed SPECT Images Keyla Vicente MD compl eted SNOMED-CT: 14784934 Physical Exam, Performed: Pulse Exam of Foot Boris Hutton MD completed EKG Boris Hutton MD completed SNOMED-CT: 094661435 [id number] Current Medications Documented Boris Hutton MD completed SNOMED-CT: 753298254 Smoking Cessation Counseling Boris Hutton MD completed SNOMED-CT: 84861533 Physical Exam, Performed: Pulse Exam of Foot Boris Hutton MD completed EKG Boris Hutton MD completed SNOMED-CT: 367610940 [id number] Current Medications Documented Boris Hutton MD completed SNOMED-CT: 71224027 Physical Exam, Performed: Pulse Exam of Foot Boris Hutton MD completed SNOMED-CT: 467517091 803817 Current Medications Documented Boris Hutton MD completed Cardiolite, 2 units Boris Hutton MD completed SPECT Images Boris Hutton MD complet ed Stress EKG Boris Hutton MD completed EKG Boris Hutton MD completed EKG Boris Hutton MD completed EKG Boris Hutton MD completed
--- OUTSIDE RECORDS SUMMARY | 2024-08-16 15:43 | XMS_ITS | Referral Summary ---
Author Organization [facility] Address [address] [place] [address] Care Team Providers Care Hose Seamer Name Role Phone Tod Burton MD Primary Care Provider [phone] Encounters Date Type Department Care Team Description 07/20/2024 Orders Only [facility] [place] Health Information Management [address] [place] [id number] Tod Burton MD from Last 3 Months Allergies No known active allergies Medications atorvastatin (LIPITOR) 80 mg tablet take 1 tablet by oral route every day 0 0 3 Active Additional Information Patient taking differently: 40 mg oral Daily, Reported on 06/04/2022 clopidogrel (PLAVIX) 75 mg tablet take 1 tablet by oral route every day 0 0 3 Active aspirin 81 mg tablet take 1 tablet by oral route every day 0 0 5 Active Chantix Continuing Month Box 1 mg tablet Take 1 mg by mouth 2 (two) times a day 1 Active Vascepa 1 gram capsule Take 2 g by mouth 2 (two) times a day 1 Active lisinopriL (PRINIVIL,ZESTRI L) 5 mg tablet Take 2.5 mg by mouth daily 1 Active evolocumab (Repatha Syringe) syringe syringe Repatha Syringe 140 mg/mL syringe 2 Active benzonatate (TESSALON) 200 mg capsuleIndicatio ns:Cough, unspecified type Take 1 capsule (200 mg total) by mouth 3 (three) times a day as needed for cough 42 capsule 3 Active Active Problems Problem Noted Date Diagnosed Date Umbilical hernia without obstruction or gangrene 05/01/2020 Overview (05/01/2020): Added automatically from request for surgery [id number] Assessment & Plan (05/25/2020 9:39 AM COMPLAINT ANALYST): Continue to wear abdominal binder as needed for comfort. No heavy lifting greater than 25 lb for 6 weeks. Continue stool softener to ensure soft bowel movements. Patient to call with any further questions or concerns. Personal history of colonic polyps 04/20/2020 Overview (04/20/2020): Added automatically from request for surgery [id number] Encounter for screening colonoscopy 04/20/2020 Overview (04/20/2020): Added automatically from request for surgery [id number] Wound of left upper extremity 06/22/2019 Assessment & Plan (06/22/2019 1:30 PM CDT): Wound is healing by secondary intention. Advised on signs and symptoms of infection and report this immediately. He does not wish to see a environmental air specialist at this time. He will call back in 1 week if he wishes to this. He was instructed on the normal healing pattern in to keep the wound dry and protected Visit for suture removal 06/21/2019 Assessment & Plan (06/29/2019 8:18 AM CDT): Sutures removed without difficulty. Briefed on signs and symptoms of infection and to report this immediately. Keep site dry and briefed on dressing application. Given dressing materials. Twenty-five sutures removed without difficulty. Advised patient that scarring will likely occure from his injury. He states he is aware of this. He does not wish to have a wound care consult placed at this time. Bilateral acute otitis media 03/11/2016 Overview (07/12/2016): Bilateral acute otitis media Tobacco dependence syndrome 08/21/2013 Overview (07/12/2016): TOBACCO USE DISORDER Chronic ischemic heart disease 11/12/2012 Overview (07/12/2016): CHR ISCHEMIC HRT DIS NOS Resolved Problems Problem Noted Date Diagnosed Date Resolved Date Umbilical hernia without obs truction and without gangrene 05/01/2020 05/25/2020 Overview (05/01/2020): Added automatically from request for surgery [id number] Umbilical hernia without obs truction and without gangrene 04/27/2020 05/25/2020 Assessment & Plan (04/27/2020 11:06 AM COMPLAINT ANALYST): I will set the patient up for umbilical hernia repair. We discussed the need for mesh implantation. We discussed postoperative restrictions. All questions answered. Pre-admission testing will be sent in. COVID -19 testing will be ordered. Immunizations Immunization Administration Dates Next Due Influenza, Quadrivalent, Lyric l Culture-based MDCK, Preservative Free, Antibiotic Free, Intramuscular 01/21/2019 Influenza, Quadrivalent, Spl it, Intramuscular 02/22/2015 Influenza, Quadrivalent, Spl it, Preservative Free, Intramuscular 03/11/2016 Influenza, Trivalent, Preser vative Free, Intramuscular 06/29/2014 Influenza, Unspecified 01/06/2020,2018(Deferred: Patient Refused),02/05/2018 Tdap 07/27/2017 Social History Tobacco Use Types Packs/Day Years Used Date Smoking Tobacco: Heavy Smoker Cigarettes 0.5 20 Smokeless Tobacco: Never Tobacco Cessation:Ready to Q uit: No; Counseling Given: Yes Comments:Smoking History Packs/day: 0.3 Packs Alcohol Use Standard Drinks/Week Comments Yes 6 (1 standard drink = 0.6 oz pur e alcohol) 3 x a week PHQ-2 Answer Date Recorded PHQ-2 Total Score (If total score is 3 or more points, staff should administer the PHQ-9) 0 04/21/2020 Sex and Gender Information Value Date Recorded Sex Assigned at Not on file Legal Sex Male 5:05 PM COMPLAINT ANALYST Gender Identity Not on file Sexual Orientation Not on file Last Filed Vital Signs Vital Sign Reading Time Taken Comments Blood Pressure 122/74 06/04/2022 12:10 PM COMPLAINT ANALYST Pulse 69 06/04/2022 12:10 PM COMPLAINT ANALYST Temperature 36.8 C (98.3 F) 06/04/2022 12:10 PM COMPLAINT ANALYST Respiratory Rate 16 06/04/2022 12:1 0 PM COMPLAINT ANALYST Oxygen Saturation 96% 06/04/2022 12: 10 PM COMPLAINT ANALYST Inhaled Oxygen Concentration - - Weight 113.8 kg (250 lb 12.8 oz) 2022 12:10 PM COMPLAINT ANALYST Height 180.3 cm (5' 11 ) 06/04/2022 12: 10 PM COMPLAINT ANALYST Body Mass Index 34.98 06/04/2022 12:10 PM COMPLAINT ANALYST Plan of Treatment Not on file Medical Devices Implanted Type Area Power Tool Repairer Device Identifier Shelf Expiration Date Model / Serial / Lot [employer] R Bard [id number] Ventralex St Sepra Sorbaflex 2.5in [place] Open Bioresorbable - [id number] Implanted:Qty: 1 on 05/17/2020 by Truman Early MD at [facility] N/A: Abdomen [employer] 11/01/2021 [id number] / / [id number] Procedures Procedure Name Priority Date/Time Associated Diagnosis Comments CARDIOLOGY DOCUMENT SCAN 07/20/2024 COLONOSCOPY 05/12/2020 11:03 AM COMPLAINT ANALYST from Last 3 Months or Most Recently Relevant to Health Maintenance Results * Cardiology Document Scan (07/20/2024) Anatomical Region Laterality Modality Other Tod Burton MD CARDIAC SERVICES [facility] Final Result * COLONOSCOPY (05/12/2020 11:03 AM COMPLAINT ANALYST) Anatomical Region Laterality Modality Other Narrative Procedure Note Jhony Abarca MD - 05/12/2020 11:03 AM CST [facility] Patient Name: Maykel Higuera Procedure Date: 05/12/2020 11:03 AM Date of : 1965 Admit Type: Outpatient Age: 54 Gender: Male Attending MD: Jhony Abarca M.D. Room: [facility] ENDOSCOPY ROOM 2 Note Status: Finalized Patient Profile: Refer to note in patient chart for documentation of history and physical. Procedure: Colonoscopy Indications: High risk colon cancer surveillance: Personalhistory of colonic polyps, Last colonoscopy: May2015 Referring MD: Tod Burton M.D. Providers: Jhony Abarca M.D. Impression: - Hemorrhoids found on perianal exam. - Diverticulosis in the sigmoid colon. - The examination was otherwise normal. - No specimens collected. Recommendation: - Discharge patient to home. - Resume previous diet. - Continue present medications. - Repeat colonoscopy in 5 years for surveillance. - Return to primary care physician as previously scheduled. Medicines: Propofol per Anesthesia Complications: No immediate complications. Estimated Blood Loss: Estimated blood loss: none. Procedure: Pre-Anesthesia Assessment: - This assessment was completed [Time ofAssessment] prior to the administration of sedation. The benefits, risks and alternatives of theprocedure and sedation were discussed and informed consentwas obtained. All questions were answered. Please referto the signed informed consent document in the medical record. The scope was passed under direct vision.The Colonoscope [id number] was introducedthrough the anus and advanced to the the cecum, identifiedby appendiceal orifice and ileocecal valve. The bowel preparation used was Miralax via single dose instruction. The bowel preparation used wasbisacodyl tablets [Single vs Split Dose]. The colonoscopy was performed without difficulty. The patient tolerated the procedure well. The quality of the bowel preparation was excellent. Findings: Hemorrhoids were found on perianal exam. A single medium-mouthed diverticulum was found in the sigmoidcolon. The exam was otherwise without abnormality. Electronically signed by Jhony Abarca M.D. Jhony Abarca M.D. 05/12/2020 11:30:52 AM Number of Addenda: 0 Note Initiated On: 05/12/2020 11:03 AM Procedure Code(s): --- Professional --- G0105, Colorectal cancer screening; colonoscopy on individual at high risk Diagnosis Code(s): --- Professional --- K57.30, Diverticulosis of large intestine without perforation orabscess without bleeding K64.9, Unspecified hemorrhoids Z86.010, Personal history of colonic polyps CPT copyright 2019 [employer]. All rights reserved. The codes documented in this report are preliminary and upon business management specialist reviewmay be revised to meet current compliance requirements. Recognized by the [place] [employer] for promoting quality in endoscopy Jhony Abarca MD ENDOSCOPY PROCEDURES Final Re sult from Last 3 Months or Most Recently Relevant to Health Maintenance Insurance [employer] [facility] H[facility]PPO Address: [address] [address] [place] [address] Advance Directives For more information, please contact: [phone] * Full Code (Latest Code Status on File) Date Activated Date Inactivated Comments 05/12/2020 10:08 AM 05/12/2020 4:15 PM * Full Code Date Activated Date Inactivated Comments 05/12/2020 10:07 AM 05/12/2020 10:08 AM Care Teams Hose Seamer Relationship Specialty Start Date End Date Tod Burton MD [address] [place] [address] PCP - General Family Medicine 07/25/20
--- OUTSIDE RECORDS SUMMARY | 2024-08-16 15:43 | XMS_ITS | Clinical Summary ---
Author Organization [facility] Address [address] [place] [address] Care Team Providers Care Landscaping Crew Leader Name Role Phone Tod Burton MD Primary Care Provider [phone] Allergies No known active allergies Medications atorvastatin [...] (05/01/2020): Added automatically from request for surgery [id number] Assessment & Plan (05/25/2020 9:39 AM NET FINISHER): Continue to wear abdominal binder as needed for comfort. No heavy lifting greater than 25 lb for 6 weeks. Continue stool softener to ensure soft bowel movements. Patient to call with any further questions or concerns. Personal history of colonic polyps 04/20/2020 Overview (04/20/2020): Added automatically from request for surgery [id number] Encounter for screening colonoscopy 04/20/2020 Overview (04/20/2020): Added automatically from request for surgery [id number] Wound of left upper extremity 06/22/2019 Assessment & Plan (06/22/2019 1:30 PM CDT): Wound is healing by secondary intention. Advised on signs and symptoms of infection and report this immediately. He does not wish to see a technology sales specialist at this time. He will call [...] (05/01/2020): Added automatically from request for surgery [id number] Umbilical hernia without obs truction and without gangrene 04/27/2020 05/25/2020 Assessment & Plan (04/27/2020 11:06 AM NET FINISHER): I will set the patient up for umbilical hernia repair. We discussed the need for mesh implantation. We discussed postoperative restrictions. All questions answered. Pre-admission testing will be sent in. COVID -19 testing will be ordered. Encounters Date Type Department Care Team Description 07/20/2024 Orders Only [facility] [place] Information Management [address] [place], [place] [id number] Tod Burton MD from Last 3 Months Immunizations Immunization Administration Dates Next Due Influenza, Quadrivalent, Lyric l Culture-based MDCK, Preservative Free, Antibiotic Free, Intramuscular 01/21/2019 Influenza, Quadrivalent, Spl it, Intramuscular 02/22/2015 Influenza, Quadrivalent, Spl it, Preservative Free, Intramuscular 03/11/2016 Influenza, Trivalent, Preser vative Free, Intramuscular 06/29/2014 Influenza, Unspecified 01/06/2020,2018(Deferred: Patient Refused),02/05/2018 Tdap 07/27/2017 Surgical History Surgery Date Site/Laterality Comments OTHER SURGICAL HISTORY heart stents x 2 HERNIA REPAIR 04/07/1984 - 04/06/1985 [place] CARDIAC SURGERY 04/07/2013 - 04/06/2014 Heart stent COLONOSCOPY 05/12/2015 Medical History Medical History Date Comments Hypertension Hypertension Cardiac disease Heart disease Myocardial infarction (HCC) Hyperlipidemia Coronary artery disease Family History Medical History Relation Name Comments Heart disease Other Hypertension Other Relation Name Status Comments Other Social History Tobacco Use Types Packs/Day Years [...] on file Legal Sex Male 5:05 PM NET FINISHER Gender Identity Not on file Sexual Orientation Not on file Obstetrics History Last Filed Vital Signs Vital Sign Reading Time Taken Comments Blood Pressure 122/74 06/04/2022 12:10 PM NET FINISHER Pulse 69 06/04/2022 12:10 PM NET FINISHER Temperature 36.8 C (98.3 F) 06/04/2022 12:10 PM NET FINISHER Respiratory Rate 16 06/04/2022 12:1 0 PM NET FINISHER Oxygen Saturation 96% 06/04/2022 12: 10 PM NET FINISHER Inhaled Oxygen Concentration - - Weight 113.8 kg (250 lb 12.8 oz) 2022 12:10 PM NET FINISHER Height 180.3 cm (5' 11 ) 06/04/2022 12: 10 PM NET FINISHER Body Mass Index 34.98 06/04/2022 12:10 PM NET FINISHER Plan of Treatment Health Maintenance Due Date Last Done Comments Hepatitis C Screening 1965 Prostate Cancer Screening-PSA 1965 Hepatitis B Screening 10/18/1981 Regular Well Visit/Exam 18-64 10/18/1981 Pneumococcal vaccine <65 (1 of 2 - PCV) 10/18/1982 Zoster Vaccine (1 of 2) 10/18/2013 Depression Screening 04/21/2021 04/21/2020, 06/29/2019, 06/22/2019, Additional history exists DTaP/Tdap/Td Vaccine (2 - Td or Tdap) 07/28/2027 07/27/2017 Colon Cancer Screening-Colonoscopy 05/12/2030 05/12/2020, 05/12/2015, 05/12/2015, Additional history exists Influenza Vaccine Discontinued 01/19/2020, , 01/21/2019, Additional history exists Colon Cancer Screening-CT Colonography Discontinued 05/12/2020, 05/12/2015, 05/12/2015, Additional history exists Colon Cancer Screening-DNA Stool Discontinued 05/12/2020, 05/12/2015, 05/12/2015, Additional history exists Colon Cancer Screening-FIT Discontinued 05/12, 05/12/2015, 05/12/2015, Additional history exists Colon Cancer Screening-Sigmoidoscopy Discontinued 05/12/2020, 05/12/2015, 05/12/2015, Additional history exists Medical Devices Implanted Type Area Glass Silverer Device Identifier Shelf Expiration Date Model / Serial / Lot [employer]/C R Bard [id number] Ventralex St Sepra Sorbaflex 2.5in [place] Open Bioresorbable - [id number] Implanted:Qty: 1 on 05/17/2020 by Truman Early MD at [facility] N/A: Abdomen [employer] 11/01/2021 [id number] / / [id number] Procedures Procedure Name Priority Date/Time Associated Diagnosis Comments CARDIOLOGY DOCUMENT SCAN 07/20/2024 COLONOSCOPY 05/12/2020 11:03 AM NET FINISHER from Last 3 Months or Most Recently Relevant to Health Maintenance Results * Cardiology Document Scan (07/20/2024) Anatomical Region Laterality Modality Other Tod Burton MD CARDIAC SERVICES [facility] Final Result * COLONOSCOPY (05/12/2020 11:03 AM NET FINISHER) Anatomical Region Laterality Modality Other Narrative Procedure Note Jhony Abarca MD - 05/12/2020 11:03 AM CST [facility] Patient Name: Maykel Higuera Procedure Date: 05/12/2020 11:03 AM Date of : 1965 Admit Type: Outpatient Age: 54 Gender: Male Attending MD: Jhony Abarca M.D. Room: [facility] ENDOSCOPY ROOM 2 Note Status: Finalized Patient [...] scope was passed under direct vision.The Colonoscope [id number] was introducedthrough the anus and advanced to [...] history of colonic polyps CPT copyright 2019 [employer] [place] [employer]. All rights reserved. The codes documented in this report are preliminary and upon supplier quality engineering manager reviewmay be revised to meet current compliance requirements. Recognized by the [employer] [place] [employer] for promoting quality in endoscopy Jhony Abarca MD ENDOSCOPY PROCEDURES Final Re sult from Last 3 Months or Most Recently Relevant to Health Maintenance Insurance [email or web address]OS CHO[employer] Advance Directives For more information, please contact: [phone] * Full Code (Latest Code Status on File) Date Activated Date Inactivated Comments 05/12/2020 10:08 AM 05/12/2020 4:15 PM * Full Code Date Activated Date Inactivated Comments 05/12/2020 10:07 AM 05/12/2020 10:08 AM Care Teams Landscaping Crew Leader Relationship Specialty Start Date End Date Tod Burton MD [address] [place] [address] PCP - General Family Medicine 07/25/20
--- OUTSIDE RECORDS SUMMARY | 2024-08-16 15:47 | XMS_ITS | CONTINUITY OF CARE DOCUMENT ---
Author Name nathandeb, nathandeb Address Unknown Organization [facility] Address [address] [facility] [address] [place] [address] Phone [phone] Care Team Providers Care Skating Carhop Name Role Phone Brennen PICKETT, Boris Unavailable CHEIKH JEFFREY MD Unavailable [phone] CHEIKH JEFFREY MD Unavailable [phone] PROBLEMS Condition Status Date Provider Notes CHEST PAIN completed - Boris Hutton MD CAD INF WALL CA VISION STENT TO RCA , PDA 2012 [...] In-person encounter Office Visit Boris Hutton MD [facility] - In-person encounter Office Visit Boris Hutton MD [facility] Sleep apnea, moderate, refused cpapLeg pain, bilateral--LARISA mild disease 10/2023 - In-person encounter Office Visit Boris Hutton MD [facility] Numbness, left side of bodySleep apnea, moderate, refused cpapLeg pain, bilateral--LARISA mild disease 10/2023 - In-person encounter Office Visit Boris Hutton MD [facility] Exposure to COVID-19 coronavirus , bronchitis 10/26 - In-person encounter Office Visit Boris Hutton MD [facility] - In-person encounter Office Visit Boris Hutton MD [facility] CAD INF WALL CA VISION STENT TO RCA , PD A 2012 , nl stress nuclear 12/2016FAMILY HISTORY OF HEART DISEASE-10/17 CAROTID NEGHTN SYSTOLIC echo 09/2019 ef 60%Hypercholesterolemia, LDL 127 in 11/2017Elevated blood glucoseHypertriglyceridemiaHyperlipidemiaFA [facility] HISTORY OF premature HEART DISEASE - In-person encounter Office Visit Boris Hutton MD [facility] Near Syncope - In-person encounter Office Visit Boris Hutton MD [facility] - In-person encounter Office Visit Boris Hutton MD [facility] Obesity - In-person encounter Office Visit Boris Hutton MD [facility] - In-person encounter Office Visit Boris Hutton MD [facility] - In-person encounter Office Visit Boris Hutton MD [facility] CHEST PAINCAD INF WALL CA VISION STENT T O RCA , PDA 2012 , nl stress nuclear 12/2016HTN SYSTOLIC echo 09/2019 ef 60% - In-person encounter Office Visit Boris Hutton MD [facility] - In-person encounter Office Visit Boirs Hutton MD [facility] - In-person encounter Office Visit Boris Hutton MD [facility] - In-person encounter Office Visit Boris Hutton MD [facility] HTN SYSTOLIC echo 09/2019 ef 60% - In-person encounter Office Visit Boris Hutton MD [facility] CAD INF WALL CA VISION STENT TO RCA , PD A [...] Hutton MD blood pressure, cuff size large Nv alex [place] blood pressure, diastolic 84 mm[Hg] Mi alex [place] blood pressure, systolic 146 mm[Hg] [facility] [place] oxygen saturation, oximetry 96 % Lorna Mireles respiratory rate E&M 16 /min Delmis tai Mireles pulse rate 63 /min Lorna schwartz weight E&M 250 [lb_av] Lorna Buckner d height E&M 71 [in_i] Lorna Buckner d Body Mass Index (Ratio) 35.28 kg/m2 Sal Hutton MD blood pressure, diastolic 92 mm[Hg] Mirna [place] blood pressure, systolic 144 mm[Hg] Cat herine [place] oxygen saturation, oximetry 98 % [facility] [place] respiratory rate E&M 14 /min Catheri ne Demond pulse rate 68 /min [facility] [place] weight E&M 253 [lb_av] Peace Demond blood pressure, cuff size large Ca therine [place] height E&M 71 [in_i] [facility] [place] Body Mass Index (Ratio) 34.59 kg/m2 Sal [...] Kwaku Mckinley oxygen saturation, oximetry 98 % Alcie Mckinley respiratory rate E&M 20 /min Alice hendrickson pulse rate 62 /min Alice Betoe lder weight E&M 254 [lb_av] Alice Betoe lder height E&M 71 [in_i] Alice Betoe er Body Mass Index (Ratio) 34.45 kg/m2 Andr ia Curly blood pressure, cuff size large Ke rri Betoelder blood pressure, diastolic 80 mm[Hg] Ke rri Betoelder blood pressure, systolic 130 mm[Hg] Kwaku ri [facility], oximetry 96 % Alice Pérezmaximilianoer respiratory rate E&M 16 /min Alice Walls jaredtaviacentral [facility] pulse rate 66 /min Alice Péreze er [...] Kelby Junior weight E&M 247.4 [lb_av] Nikunj saunders Body Mass Index (Ratio) 34.03 kg/m2 Concepcion [...] pressure, systolic, right arm 125 m m[Hg] [facility] blood pressure, diastolic 71 mm[Hg] Walter jerrell [place] blood pressure, systolic 127 mm[Hg] Robin [place] pulse rate 58 /min [facility] oxygen saturation, oximetry 97 % [facility] respiratory rate E&M 16 /min [facility] weight E&M 200 [lb_av] [facility] height E&M 71 [in_i] [facility] ALLERGIES No Known Drug Allergies RESULTS Date [...] LinkLogic 3.5-5.2 sodium, serum 139 mmol/L LinkLogic 241-318 3020/01/ 14 urea nitrogen/creatinine ratio, serum 24 LinkLogic [...] 100-199 High platelet count 214 X10E3/UL LinkLogic [phone]/06/ 18 red blood cell distribution width 12.9 [...] 3.5-5.2 High sodium, serum 143 mmol/L [employer]Log[employer] 182-385 0803/06/ 18 urea nitrogen/creatinine ratio, serum 21 LinkLogic [...] Not Estab. platelet count 201 X10E3/UL LinkLogic [phone]/02/ 06 red blood cell distribution width 13.4 [...] 100-199 High platelet count 195 X10E3/UL LinkLogic [phone]/08/ 11 red blood cell distribution width 13.8 [...] LinkLogic 3.5-5.2 sodium, serum 142 mmol/L LinkLogic [phone]/08/ 11 urea nitrogen/creatinine ratio, serum 22 LinkLogic [...] two weeks Desmond Marsh CAD INF WALL CA VISION STENT TO RCA , PDA 2012 [...] completed 2 capsules by mouth twice daily [place] Coupon Code: KORTNEY# [id number], PCN# [id number], GRP# [id number], ID# [id number] 09/22 - 10/23 Alice CABRALESTIX CONTINUING MONTH [...] smoking status Current every day smoker R ndliz Marsh drug use no Desmond Marsh alcohol [...] years as a smoker 20 a [facility] [place] smoking history, tot al pack/day 1/2 ppd Peace Demond cigarette use yes [facility] [place] smoking status Current every day smoker C gigi Demond social history reviewed E&M revi ewed - no changes required Desmond Corymakayla social history E&M Marital Statu s: Smoking History: P atleno currently smokes every day. P atient has been counseled to quit. Boris Hutton MD social history reviewed E&M revi ewed - no changes required Boris Hutton MD exercise type work [employer] caffeine use, averag e drinks per [...] years as a smoker 20 a Alice Préezmaximilianoalfredo smoking history, tot al pack/day 1/2 ppd [...] been counseled to quit. Boris Hutton MD smoking/tobacco cess ation, patient education and counseling yes Boris Hutton MD social history reviewed E&M revi ewed - no changes required Boris Hutton MD exercise type work Tierra Jameson alcohol counseling no Tierra Brent s In the past 3 months , have you been waking up wanting to use drugs? (CAGE substance use question #4) N [facility] In the past 3 months , have you felt guilty or bad about using drugs? (CAGE substance use question #3) N [facility] In the past 3 months , has anyone annoyed you by telling you to cut down or stop using drugs? (CAGE substance use question #2) N [facility] In the past 3 months , have you felt you should cut down or stop using drugs?(CAGE substance use question #1) N [facility] alcohol use, average drinks per day social [facility] alcohol use, type occa [facility] alcohol use yes [facility] caffeine use, averag e drinks per day yes [facility] drug use no [facility] passive cigarette sm ryan exposure no [facility] number of years as a smoker 20 a [facility] smoking history, tot al pack/day 1/2 ppd [facility] cigarette use yes [facility] smoking status Current every day smoker [facility] number of grandchildren Boris Hutton MD [...] Clarence garcia alcohol use yes Alice [facility] caffeine use, averag e drinks per day [...] Nikunj Linn nicky alcohol counseling no Nikunj Jnuior In the past 3 months , have [...] Payer name Policy type / Coverage type [place] [employer] party ID [facility] [employer] [id number] ADVANCE DIRECTIVES Name Date DISCUSSED - NO DECISION MADE TREATMENT PLAN Date Name Performer [id number],C, Boris Hutton MD [id number],S, Boris Hutton MD [id number],S, Boris Hutton MD [id number],B, Boris Hutton MD [id number],W, Boris Hutton MD [id number],B, Boris Hutton MD [id number],B, Desmond Bourgeois i [id number],S, Desmondliz Bourgeois i [id number],S, Desmond Bourgeois i [id number],S, Desmond Coyrkin lindsey [id number],S, Desmond Bourgeois i [id number],S, Boris Hutton MD [id number],S, Boris Hutton MD [id number],S, Boris Hutton MD [id number],S, Boris Hutton MD [id number],S, Boris Hutton MD Cardiology: H is updated [...] by mouth once a day [facility] Cardiology: T he following medications were removed from the medication list: Ezetimibe 10 Mg Tablet (Ezetimibe) ..... Take 1 tablet by mouth once daily His updated medication list for this problem includes: Repatha Sureclick 140 Mg/ml Pen Injector (Evolocumab) ..... Inject 1 pen injector subcutaneously every two weeks Atorvastatin 80 Mg Tablet (Atorvastatin) ..... Take 1 tablet by mouth at night [facility] Cardiology [facility] Cardiology: H is updated medication list for this problem includes: Lisinopril 10 Mg Tablet (Lisinopril) ..... Take 1 tablet by mouth once daily Clopidogrel 75 Mg Tablet (Clopidogrel) ..... Take 1 tablet by mouth once daily Aspirin 325 Mg Tablet (Aspirin) ..... 1 tablet by mouth once a day [facility] Cardiology [facility] Cardiology [facility] Cardiology: H is updated medication list for this problem includes: Lisinopril 10 Mg Tablet (Lisinopril) ..... Take 1 tablet by mouth once daily Clopidogrel 75 Mg Tablet (Clopidogrel) ..... Take 1 tablet by mouth once daily Aspirin 325 Mg Tablet (Aspirin) ..... 1 tablet by mouth once a day [facility] Cardiology: H is updated medication [...] (04/20/2020) LDL: 145 (04/20/2020) T (04/20/2020) [facility]: His updated medication list for this problem includes: Lisinopril 10 Mg Tablet (Lisinopril) ..... Take 1 tablet by mouth once daily Aspirin 325 Mg Tablet (Aspirin) ..... 1 tablet by mouth once a day Orders: E KG (CPT-79362) C OMPREHENSIVE METABOLIC PANEL, W/EGFR (96592) L IPID PANEL (7600) H EMOGLOBIN A1c (496) C BC (INCLUDES DIFF/PLT) (6399) T SH, free T4, total T3 (7444) [facility] Cardiology: His updated medication list for this problem includes: Lisinopril 10 Mg Tablet (Lisinopril) ..... Take 1 tablet by mouth once daily Clopidogrel 75 Mg Tablet (Clopidogrel) ..... Take 1 tablet by mouth once daily Aspirin 325 Mg Tablet (Aspirin) ..... 1 tablet by mouth once a day Orders: C arotid Duplex Bilateral (CPT-39210) C OMPREHENSIVE METABOLIC PANEL, W/EGFR (97507) L IPID PANEL (7600) H EMOGLOBIN A1c (496) C BC (INCLUDES DIFF/PLT) (6399) T SH, free T4, total T3 (7444) [facility] Cardiology: O rders: C arotid Duplex Bilateral (CPT-37581) M onitor - Telemetry (Mobile Cardiac) (CPT-91212) C OMPREHENSIVE METABOLIC PANEL, W/EGFR (43600) L IPID PANEL (7600) H EMOGLOBIN A1c (496) C BC (INCLUDES DIFF/PLT) (6399) T SH, free T4, total T3 (7444) [facility] Cardiology: O rders: C arotid Duplex Bilateral (CPT-10716) C OMPREHENSIVE METABOLIC PANEL, W/EGFR (96660) L IPID PANEL (7600) H EMOGLOBIN A1c (496) C BC (INCLUDES DIFF/PLT) (6399) T SH, free T4, total T3 (7444) Desmond Ahmedzai Cardiology: O rders: A rterial Duplex Bi-Lower EX (CPT-25734) Desmond medzai Cardiology Desmond medzai Cardiology Desmond medzai Cardiology: O rders: C OMPREHENSIVE METABOLIC PANEL, W/EGFR (86367) L IPID PANEL (7600) H EMOGLOBIN A1c (496) C BC (INCLUDES DIFF/PLT) (6399) T SH, free T4, total T3 (7444) [facility]:Patient w as advised to stop smoking. O rders: C OMPREHENSIVE METABOLIC PANEL, W/EGFR (71219) L IPID PANEL (7600) H EMOGLOBIN A1c [...] Hutton MD Cardiology Follow up :Hx of CA in 2012. Interested in the Select trial. Boris Hutton MD Cardiology Follow up Boris rogers MD Cardiology Follow up :Was not able to get Vascepa. Will send another Rx. Labs in September 2019 showed trigs of 615. On Lipitor 80mg daily. Pt has hx of CAD and hx of CA. Already on maximum dose of statin. Needs [...] Delroy rogers MD Cardiology Follow up Tonigurvinder rogesr MD Cardiology Follow up Tongrant rogers MD [...] 0.5 tab daily O rders: E KG (CPT-62468) BP today: 128/81 P rior BP: 151/91 (05/11/2013) Boris Hutton MD routine : H is updated medication list for this problem includes: Atorvastatin Calcium 80 Mg Tabs (Atorvastatin calcium) ..... One tab daily BP today: 151/91 Prior BP: 127/71 (11/24/2012) Boris Hutton MD [facility] follow up: H is updated medication list for this problem includes: Atorvastatin Calcium 80 Mg Tabs (Atorvastatin calcium) ..... One tab daily Boris Hutton MD [facility] follow up: H is updated medication list for this problem includes: Aspirin 325 Mg Tabs (Aspirin) ..... One tab. daily Lisinopril 2.5 Mg Tabs (Lisinopril) ..... One tab. daily Boris Hutton MD [facility] follow up Boris Hutton MD [facility] follow up: H is updated medication list [...] diffuse CAD. Normal EF of 60%. - [facility] (09/28/2012) C ardiac Cath Comments: Successful stenting of the RCA with a 3.0 mm x 12 mm stent and of the PDA with a 2.5 mm x 12 mm stent. - [facility] (09/28/2012) C arotid Doppler/Duplex: Normal carotid duplex examination. Vertebral flow is antegrade bilaterally. - [facility] (10/06/2012) Boris Hutton MD hsp follow up: H is updated medication list for this problem includes: Aspirin 325 Mg Tabs (Aspirin) ..... One tab. daily Plavix 75 Mg Tabs (Clopidogrel bisulfate) ..... One tab. daily Lisinopril 2.5 Mg Tabs (Lisinopril) ..... One tab. daily Orders: E KG (CPT-57821) Boris Hutton MD Date Name Complete Echo [...] Images Keyla Vicente MD compl eted SNOMED-CT: 83446404 Physical Exam, Performed: Pulse Exam of Foot Boris Hutton MD completed EKG Boris Hutton MD completed SNOMED-CT: 576537991 087323 Current Medications Documented Boris Hutton MD completed SNOMED-CT: 586004723 Smoking Cessation Counseling Boris Hutton MD completed SNOMED-CT: 74181292 Physical Exam, Performed: Pulse Exam of Foot Boris Hutton MD completed EKG Boris Hutton MD completed SNOMED-CT: 174880901 677615 Current Medications Documented Boris Hutton MD completed SNOMED-CT: 29155862 Physical Exam, Performed: Pulse Exam of Foot Boris Hutton MD completed SNOMED-CT: 963125546 693458 Current Medications Documented Boris Hutton MD completed Cardiolite, 2 units Boris Hutton MD completed SPECT Images Boris Hutton MD complet ed Stress EKG Boris Hutton MD completed EKG Boris Hutton MD completed EKG Boris Hutton MD completed EKG Boris Hutton MD completed
[2024-08-16 15:48] VITALS: BP 145/85; PULSE 60; RESP 20; TEMP 36.9; O2SAT 100
--- NOTE | 2024-08-16 15:52 | ED_ITS ---
HPI - URI/Sore Throat General Chief Complaint: Upper Respiratory Infection Stated Complaint: bilateral ear discomfort, sinus congestion Time Seen by Provider: 08/16/24 15:53 Source: patient, RN notes reviewed and old records reviewed Mode of arrival: ambulatory Limitations: no limitations History of Present Illness HPI Narrative: 58 year old male presents to [facility] care with complaints of 2 week duration of sinus congestion and drainage with some bilateral ear pressure especially to right ear. Patient reports that he has had some right facial pressure and some headache discomfort Patient reports that he has been taking Sudafed for his symptoms without resolution. Patient denies any know fevers chills or sweats or any body aches. Patient reports that he has had some cough which is dry nonproductive, is pack a day cigarette smoker. MD elicited complaint: cough and sore throat Pertinent past history: sinusitis and other (bronchitis) Onset (ago): week(s) (2) Consistency: constant Severity: moderate Able to tolerate fluids by mouth: Yes Treatments prior to arrival: other (sudafed) Related Data Home Medications ?Medication ?Instructions ?Recorded ?Confirmed ?Last Taken ?Type aspirin 81 mg tablet,delayed 81 mg PO DAILY 10/17/21 07/21/23 Unknown History release (Adult Low Dose Aspirin) atorvastatin 80 mg tablet 1 tablet PO DAILY 10/17/21 07/21/23 Unknown History clopidogrel 75 mg tablet 1 tablet PO DAILY 10/17/21 07/21/23 Unknown History evolocumab 140 mg/mL subcutaneous 1 syr subcut [id number] 10/17/21 07/21/23 Unknown History syringe (Repatha Syringe) lisinopril 2.5 mg tablet 1 tablet PO DAILY 10/17/21 07/21/23 Unknown History Allergies Allergy/AdvReac Type Severity Reaction Status Date / Time No Known Allergies Allergy Verified 10/17/21 08:35 Review of Systems Review of Systems: CONSTITUTIONAL: Denies malaise, chills, sweats, or fever. EYES: Denies visual changes, redness, or discharge. ENT: Reports rhinorrhea, congestion, sinus pain, otalgia and no sore throat. CARDIOVASCULAR: Denies chest pain, palpitations, or edema. RESPIRATORY: Reports cough.? Denies dyspnea. GASTROINTESTINAL: Denies abdominal pain, nausea, vomiting, diarrhea SKIN: Denies rash or itching. MUSCULOSKELETAL: Denies myalgia. NEUROLOGIC: Reports headache. All systems reviewed & are unremarkable except as noted in HPI and below PMFSH Past Medical History Medical History (Updated 08/16/24 @ 16:34 by Theodora Viramontes NP) Hypertension Hx of senior living use of blood thinners High cholesterol Surgical History Surgical History (Updated 08/16/24 @ 16:27 by Theodora Viramontes NP) H/O left inguinal hernia repair H/O heart artery stent x2 2013 Social History Social History Smoking packs per day: 1 Smoking cigarettes per day: 20.0 Smoking status: Current every day smoker Tobacco type: cigarettes Alcohol intake: current Alcohol use details: social Comments At time of signature, agree with nursing past medical, surgical, social and family history. There is no relevant family history pertinent to the presenting complaint Exam Narrative: GENERAL: Well-appearing, well-nourished, and in no acute distress. HEAD: Normocephalic EYES: PERRLA, conjunctivae clear ENT: Nares clear, turbinates edematous and erythematous, clear discharge.sinus pressure and headaches. Mucous membranes moist.Right TM with some redness, Left TM pearly vu with dull light reflex bilaterally; no tragal tenderness. Oropharynx erythematous without lesions. Tonsils not enlarged and without exudate, no drooling, no hoarseness, no trismus, uvula midline.post nasal drainage NECK: Supple. No lymphadenopathy CHEST: decreased breath sound on auscultation, breath sounds equal. No wheezing, rhonchi, rales, or stridor. No respiratory distress, speaks in full sentences. cough noted non productive SAO2 100% on room air HEART: Regular rate and rhythm. No murmur heard. SKIN: Warm, dry, no rash. NEURO: Alert and oriented x3. PSYCH: Normal mood and affect Course Course Emergency Course: Patient is aware of diagnosis, understands and agrees to treatment plan.? Anticipatory guidance given.? Patient agrees to follow-up as directed and is aware of reasons to seek care at the emergency department. Portions of this record may have been created with voice recognition software Level of Care: Express Care Visit Vital Signs Vital signs: Vital Signs Temperature 36.9 C 08/16/24 15:48 Pulse Rate 60 08/16/24 15:48 Respiratory Rate 20 08/16/24 15:48 Blood Pressure 145/85 H 08/16/24 15:48 Pulse Oximetry 100 08/16/24 15:48 Oxygen Delivery Room Air 08/16/24 15:48 Temperature 36.9 C 08/16/24 15:48 Pulse Rate 60 08/16/24 15:48 Respiratory Rate 20 08/16/24 15:48 Blood Pressure 145/85 H 08/16/24 15:48 Pulse Oximetry 100 08/16/24 15:48 Oxygen Delivery Room Air 08/16/24 15:48 Reviewed MDM - URI/Sore Throat MDM Narrative Medical decision making narrative: Differential diagnosis considered: Welch virus, strep pharyngitis, allergic rhinitis, upper respiratory tract infection, sinusitis, rhinosinusitis, nasopharyngitis. viral pharyngitis, otitis media, otitis externa, pneumonia, bronchitis, viral cough syndrome, viral syndrome, and influenza.? Exam findings show no acute concerns or changes; patient is non-toxic appearing and is in no distress.? Patient is appropriate for outpatient treatment and follow-up. Differential Diagnosis Differential diagnosis: Likely upper respiratory infection, otitis media (right), sinusitis, viral infection and other Medical Records Attestation: I reviewed the patient's medical records. Lab Data Attestation: I reviewed the patient's lab results. Critical Care Time Critical Care Time Critical Care Time: No Discharge Plan Discharge Clinical Impression: Acute cough Sinusitis Qualifiers: Sinusitis location: pansinusitis Chronicity: acute Recurrence: not specified as recurrent Qualified Code(s): J01.40 - Acute pansinusitis, unspecified Otitis media, right Qualifiers: Otitis media type: serous Chronicity: acute Recurrence: non-recurrent Qualified Code(s): H65.01 - Acute serous otitis media, right ear Patient Disposition: Home Condition: Stable Instructions: Antibiotic Form, Sinusitis (ED), Acute Cough (ED) Additional Instructions: Increase fluids especially juices and water Wojr-rsk-curdfti cough and cold medicine of your choice for your symptoms Zyrtec Claritin or Patricia daily include Coricidin brand decongestant Steroids as directed--take with food heat to the face 20-30 minutes 4-6 times a day for pain Salt water gargles, throat lozenges or throat sprays as desired Antibiotic as directed--finished the medication If your symptoms persist, change or worsen significantly before you can contact your personal physician then please, without delay, go to the emergency department for further evaluation. Follow-up with PCP in 7-10 days or sooner if needed Follow up with PCP soon in regards to your blood pressure which is elevated above threshold for referral. Blood pressure above 120/80 may indicate pre- hypertension. 145/85 Tylenol or Ibuprofen for any fever or pain Patient Language: Polish Prescriptions: New azithromycin 500 mg tablet 500 mg PO DAILY 5 Days Qty: 5 0RF prednisone 20 mg tablet 40 mg PO DAILY 5 Days Qty: 10 0RF Rx Instructions: take with food take in am No Action Repatha Syringe 140 mg/mL syringe 1 syr SUBCUT [id number] lisinopril 2.5 mg tablet 1 tablet PO DAILY clopidogrel 75 mg tablet 1 tablet PO DAILY atorvastatin 80 mg tablet 1 tablet PO DAILY aspirin [Adult Low Dose Aspirin] 81 mg Tablet,Delayed Release (Dr/Ec) 81 mg PO DAILY Follow-up/Referrals: Harms,Tod Gonzalez M.D. [Primary Care Provider] - Time of Disposition: 16:09 Quality Faith Coma Scale Eyes: Open Verbal: Oriented and Alert Motor: Follows Commands [place] Coma Total Score: 15
== END 2024-08-16 16:18 | disposition home or self-care (01) ==
PROVIDERS: Emergency Provider Registered Nurse; PCP Family Medicine
DX: R05.1 Acute cough (principal); J01.40 Acute pansinusitis, unspecified; H65.01 Acute serous otitis media, right ear; F17.210 Nicotine dependence, cigarettes, uncomplicated; I10 Essential (primary) hypertension; E78.00 Pure hypercholesterolemia, unspecified; Z95.5 Presence of coronary angioplasty implant and graft; Z79.82 Long term (current) use of aspirin
CPT/HCPCS: 99213; G0463